=== PATIENT | female | born 1950 | race Caucasian/White ===

== ENCOUNTER 2019-06-02 17:18 | Inpatient (IN) | payer OTHER ==
[~2019-06-02] VITALS: Ht 170.2 cm; Wt 86.2 kg
--- NOTE | 2019-06-02 06:50 | NUR ---
RECEIVED CRITICAL LABS THAT PT POTASSIUM IS 5.9. WILL ENDORSE TO DAYSHIFT NURSE TO FOLLOW UP BECAUSE RESIDENT MD'S ARE DOING THIER ROUNDS.
--- NOTE | 2019-06-02 17:18 | NUR ---
Patient BIBA BLS, transferred to bed 5. RN evaluating patient at bedside.
[2019-06-02 17:24] VITALS: BP 104/35
[2019-06-02] MEDS ORDERED: ONDANSETRON 4 MG/2 ML VIAL IVP ONE (17:40)
[2019-06-02] MEDS ORDERED: NACL 0.9% 1,000 ML IV ONE (17:40)
--- NOTE | 2019-06-02 18:15 | NUR ---
LAB AT BEDSIDE. UNABLE TO GET FULL SET OF LABS.
--- NOTE | 2019-06-02 18:30 | NUR ---
LAB AT BEDSIDE
[2019-06-02 18:44] LABS: HEMATOCRIT 37.2 % (36-48); HEMOGLOBIN 11.5 g/dL (12.0-16.0); MEAN CORPUSCULAR HEMOGLOBIN 31 pg (27-31); MEAN CORPUSCULAR HGB CONC 31 g/dL (33-37); MEAN CORPUSCULAR VOLUME 100.6 fL (80-94); PLATELET COUNT (AUTO) 357 K/uL (140-450); WHITE BLOOD COUNT (AUTO) 20.2 K/uL (4.8-10.8)
--- NOTE | 2019-06-02 18:49 | NUR ---
PT HAD DARK GREEN STOOL IN DIAPER, CLEANED PT WITH DHEERAJ LUU, ASSISTED PT TO BED LEVY TO PROVIDE URINE SAMPLE.
[2019-06-02 19:00] LABS: ALBUMIN 2.8 g/dL (3.4-5.0); ASPARTATE AMINOTRANSFERASE 20 U/L (15-37); CARBON DIOXIDE 23.8 mmol/L (21-32); CHLORIDE 111 mmol/L (98-107); CREATININE 2.2 mg/dL (0.6-1.3); GLUCOSE 195 mg/dL (74-106); LIPASE 179 U/L (73-393); POTASSIUM 5.8 mmol/L (3.5-5.1); SODIUM SERUM 146 mmol/L (136-145); TOTAL BILIRUBIN 0.3 mg/dL (0.0-1.0); UREA NITROGEN, BLOOD 50 mg/dL (7-18)
--- NOTE | 2019-06-02 19:00 | NUR ---
ATTEMPTED STRAIGHT CATH WITH DHEERAJ LUU AND RADHA EMT ASSISTING, UNABLE TO GET URINE RETURN. PER ER OKAY TO GIVE PT WATER.
--- NOTE | 2019-06-02 19:05 | NUR ---
TRANSFER OF CARE AND REPORT GIVEN BY BELL RIGGINS
--- NOTE | 2019-06-02 19:09 | NUR ---
CHIKIS ONEAL POSTPARTUM RN
[2019-06-02 19:11] LABS: LYMPHOCYTES % (MANUAL) 2 % (20-46); MONOCYTES % (MANUAL) 7 % (5-12)
--- NOTE | 2019-06-02 19:23 | NUR ---
PT LEAVING VIA GURNEY TO CT WITH EMT
[2019-06-02] MEDS ORDERED: PIPERACILLIN/TAZOBACTAM 3.375 GM in DEXTROSE 5% 50 ML IV ONE (19:35)
[2019-06-02] MEDS ORDERED: metroNIDAZOLE 500 MG/NS PREMIX 100 ML IV ONE (19:35)
[2019-06-02] MEDS ORDERED: PIPERACILLIN/TAZOBACTAM 3.375 GM VIAL IV ONE (19:40)
--- NOTE | 2019-06-02 20:36 | NUR ---
DORIAN CONTACT INFORMATION
[2019-06-02] MEDS ORDERED: LOSA25TA43 PO (20:44)
[2019-06-02] MEDS ORDERED: MIRA25TE PO (20:45)
[2019-06-02] MEDS ORDERED: SIMV40TA1 PO (20:49)
[2019-06-02] MEDS ORDERED: ASPI-1884 PO (20:49)
[2019-06-02] MEDS ORDERED: OMEP20TC12 PO (20:50)
[2019-06-02] MEDS ORDERED: MIRT15TA PO (20:51)
[2019-06-02] MEDS ORDERED: GLIP5TER PO (20:53)
--- NOTE | 2019-06-02 20:53 | NUR ---
DR. HUFF AT BEDSIDE USING ULTRASOUND FOR IV ACCESS. 20 GAUGE TO RIGHT AC. VERBAL ORDER FOR NS 1000 BOLUS.
[2019-06-02] MEDS ORDERED: GABA100C PO (20:54)
[2019-06-02] MEDS ORDERED: ASCO500T45 PO (20:55)
[2019-06-02] MEDS ORDERED: [UNRECOGNIZED DRUG - CODE] PO (20:55)
[2019-06-02] MEDS ORDERED: FERR325E14 PO (20:56)
[2019-06-02] MEDS ORDERED: LACT1CAP59 PO (20:56)
[2019-06-02] MEDS: NACL 0.9% 1,000 ML IV SCH (21:02)
[2019-06-02] MEDS ORDERED: HYDROcodone/APAP 7.5/325 MG 1 TAB PO PRN (21:05)
[2019-06-02] MEDS ORDERED: ONDANSETRON 4 MG/2 ML VIAL IM/IVP PRN (21:05)
[2019-06-02] MEDS ORDERED: ACETAMINOPHEN 325 MG TAB PO PRN (21:05)
--- NOTE | 2019-06-02 21:09 | NUR ---
XRAY AT BEDSIDE
--- NOTE | 2019-06-02 21:12 | NUR ---
CALLED FOR ROOM. NURSE UNAVAILABLE TO TAKE REPORT AND RECIEVE ROOM.
--- NOTE | 2019-06-02 21:22 | NUR ---
CALLED FLOOR. NO ANSWER.
--- NOTE | 2019-06-02 21:38 | NUR ---
PT HAD LOOSE DARK GREEN STOOL. PT AREA CLEAN AND DRY. SKIN INTACT.
[2019-06-02 21:40] LABS: PROTHROMBIN TIME 9.6 secs (10.8-13.4)
[2019-06-02] MEDS ORDERED: DEXTROSE 50% 50 ML SYR IVP PRN (21:40)
[2019-06-02 21:47] LABS: CHOL/HDL RATIO 4.4 (1-4.5); FREE T4 (FREE THYROXINE) 1.18 ng/dL (0.76-1.46); MAGNESIUM 3.8 mg/dL (1.8-2.4); PHOSPHORUS 5.8 mg/dL (2.5-4.9); THYROID STIMULATING HORMONE 4.05 uIU/mL (0.34-3.74)
--- NOTE | 2019-06-02 21:55 | NUR ---
Transfer of care and report given to BELL Hurd
--- NOTE | 2019-06-02 21:55 | NUR ---
Patient will be admitted to care of Dr. Morrow. Admited to Tele. Will go to room 125a. Belongings list completed. Report to BELL Hurd.
--- NOTE | 2019-06-02 22:00 | NUR ---
RECEIVED PT BY KEYON REPORT GIVEN FROM ENID BAND SALVAGER NURSE AT BEDSIDE FOR CONTINUITY OF CARE. PT IS AOX3, HER SKIN IS INTACT, LUNGS CLEAR AND BOWEL SOUNDS PRESENT. PT IS NPO EXCEPT MEDS PER MD. GORDO PT MAY HAVE SOME ICE CHIPS. V/S FOLLOWS T 97.2 P 86 R 18 B/P 122/97 02 99% ON ROOM AIR. PT ANTOINETTE PAIN AT THIS TIME. SHE HAS 2 IV SITE , 1 IS A 20 G LEFT AC WHICH IS FINISHING UP A BOLUS FROM ER. SHE ALSO HAS A 24 G ON RIGHT FINGER INTACT AND FLUSHED PATENT. BED LOW AND CALL BAUTISTA IN REACH.
--- NOTE | 2019-06-02 22:15 | NUR ---
MD CARO AT BEDSIDE INTERVIEWING PT.
--- NOTE | 2019-06-02 23:00 | NUR ---
PT HAD A BM WHICH WAS DARK, TARRY IN COLOR AND CHUNKY CONSISTENCY. STOOL COLLECTED FOR DIFFERENT TESTS INCLUDING WBC, OCCULT BLOOD AND OCCULT STOOL AND C-DIFF. MD ORDERED A KEENAN CATHETER AND A 16 [place] CITIZEN KEENAN CATHETER INSERTED. URINE CAME OUT CLOUDY YELLOW WITH SEDIMENT. URINE SAMPLE COLLECTED AND SENT TO LAB.
[2019-06-03] VITALS (7 sets, daily range): BP systolic 86–122; BP diastolic 36–97
--- NOTE | 2019-06-03 | NUR ---
PT IN BED NO S/S OF PAIN OR DISTRESS NOTED. V/S FOLLOWS T 98.3 P 89 R 18 B/P 113/47 02 96% ON ROOM AIR. ALL FALLS PRECAUTIONS IN PLACE.
--- NOTE | 2019-06-03 01:00 | NUR ---
LAB CALLED AND COULD NOT USE COLLECT STOOL FOR C-DIFF.
[2019-06-03 01:55] LABS: APPEARANCE,URINE CLOUDY (CLEAR); BILIRUBIN,URINE NEGATIVE (NEGATIVE); BLOOD, URINE 1+ (NEGATIVE); COLOR,URINE YELLOW (YELLOW); UGLUCOSE NEGATIVE (NEGATIVE)
[2019-06-03 01:56] LABS: LEUKOCYTE ESTERASE ,URINE 3+ (NEGATIVE); NITRITE, URINE POSITIVE (NEGATIVE)
[2019-06-03 01:57] LABS: RBC,URINE 11-20 (MOD) /HPF (0-5); WBC,URINE TOO MANY TO COUNT /HPF (0-5)
--- NOTE | 2019-06-03 04:00 | NUR ---
PT IN BED SLEEPING NO S/S OF DISTRESS NOTED, KEENAN DRAINED 500MLS OF DIMITRY REDDISH URINE. IV SITE 24G INTACT AND RUNNING NS AT 100MLS/HR. V/S FOLLOWS T 97.0 P 92 R 18 B/P 108/44 02 93% ON ROOM AIR.
[2019-06-03] MEDS: metroNIDAZOLE 500 MG/NS PREMIX 100 ML IV SCH ×3 (04:42→21:00)
--- NOTE | 2019-06-03 04:47 | NUR ---
AMARJIT MEJIA AND IS RUNNING ORDERED AT 100MLS/HR.
[2019-06-03] MEDS ORDERED: LEVOFLOXACIN 500 MG/D5W PREMIX 100 ML IV SCH (06:00)
--- NOTE | 2019-06-03 06:00 | NUR ---
FINGERSTICK IS 151 NO COVERAGE GIVEN BECAUSE PT IS NPO. LEVAQUIN HUNG ORDERED.
[2019-06-03 06:31] LABS: HEMOGLOBIN 10.9 g/dL (12.0-16.0)
[2019-06-03] MEDS: NACL 0.9% 1,000 ML IV SCH ×3 (06:37→22:49)
[2019-06-03 06:38] LABS: ANION GAP 18.6 (8-16); CARBON DIOXIDE 21.3 mmol/L (21-32); CHLORIDE 112 mmol/L (98-107); GLUCOSE 172 mg/dL (74-106); SODIUM SERUM 146 mmol/L (136-145); UREA NITROGEN, BLOOD 51 mg/dL (7-18)
[2019-06-03] MEDS: BLOOD GLUCOSE MONITORING 1 DEV DEV FS SCH ×4 (06:38→21:22)
[2019-06-03 06:50] LABS: POTASSIUM 5.9 mmol/L (3.5-5.1)
[2019-06-03 06:56] LABS: HEMATOCRIT 34.8 % (36-48); MEAN CORPUSCULAR HEMOGLOBIN 31 pg (27-31); MEAN CORPUSCULAR HGB CONC 31 g/dL (33-37); MEAN CORPUSCULAR VOLUME 98.6 fL (80-94); PLATELET COUNT (AUTO) 312 K/uL (140-450); RED BLOOD CELL COUNT(AUTO) 3.53 MIL/uL (4.20-5.40); RED CELL DISTRIBUTION WIDTH 13.9 % (11.6-13.7); WHITE BLOOD COUNT (AUTO) 16.6 K/uL (4.8-10.8)
--- NOTE | 2019-06-03 07:20 | NUR ---
RECEIVED BEDSIDE REPORT FROM PODIATRIC MEDICINE PROFESSOR NURSE, LINDSAY, AT BEDSIDE. PATIENT IS AROUSED BY NAME, OX2-3. RESPIRATION EVEN UNLABORED ON ROOM AIR. SKIN IS INTACT, WARM AND DRY. IV TO LEFT HAND 24G, PATENT AND INTACT. RUNNING NS AT 100ML/HR. KEENAN CATH DRAINING CLOUDY YELLOW URINE. PLAN OF CARE WAS DISCUSSED. ALL SAFETY MEASURES IN PLACE. BED IS AT LOWEST POSITION. CALL LIGHT WITHIN REACH. ON TELE MONITOR. WILL CONTINUE TO MONITOR.
[2019-06-03] MEDS ORDERED: DEXTROSE 50% 50 ML SYR IVP SCH (07:45)
[2019-06-03] MEDS ORDERED: INSULIN REGULAR, HUMAN 100 UNIT/ML VIAL IVP SCH (07:45)
--- NOTE | 2019-06-03 08:30 | NUR ---
PATIENT HAS BEEN SCREENED AND CATEGORIZED HIGH NUTRITION RISK. PATIENT WILL BE SEEN WITHIN 1-2 DAYS OF ADMISSION. 06/03/19-06/04/[address]
[2019-06-03] MEDS ORDERED: INSULIN REGULAR, HUMAN 100 UNIT/ML VIAL SUBQ ONE (08:45)
[2019-06-03] MEDS ORDERED: DEXTROSE 50% 50 ML SYR IVP ONE (08:45)
[2019-06-03] MEDS: PANTOPRAZOLE 40 MG TABEC PO SCH (08:54)
[2019-06-03] MEDS: ASCORBIC ACID 500 MG TAB PO SCH (08:54)
[2019-06-03] MEDS: LACTOBACILLUS RHAMNOSUS GG 1 EACH CAP PO SCH (08:55)
[2019-06-03 08:57] LABS: LYMPHOCYTES % (MANUAL) 18 % (20-46)
[2019-06-03 08:58] LABS: MONOCYTES % (MANUAL) 5 % (5-12)
[2019-06-03] MEDS ORDERED: LOSARTAN 25 MG TAB PO SCH (09:00)
[2019-06-03] MEDS ORDERED: SODIUM POLYSTYRENE 15 GM/60 ML UDBTL PO SCH ×2 (09:30→12:45)
--- NOTE | 2019-06-03 10:30 | NUR ---
C DIFF SPECIMEN SENT TO LAB.
--- NOTE | 2019-06-03 12:00 | NUR ---
DR BAKER HAS SEEN PT, MADE HIM AWARE PT HAS DIARRHEA AND BLACK STOOL. C DIFF HAS BEEN SENT ALREADY.
--- NOTE | 2019-06-03 12:30 | NUR ---
MADE RESIDENT DR SOLOMON AWARE OF LOW BP 94/36. DR SOLOMON CHECKED ON PT.
[2019-06-03] MEDS ORDERED: NACL 0.9% 500 ML IV ONE (12:50)
--- NOTE | 2019-06-03 13:36 | NUR ---
06/03/19 RD INITIAL ASSESSMENT COMPLETED PLEASE REFER TO NUTRITION ASSESSMENT UNDER CARE ACTIVITY FOR ESTIMATED NUTRITIONAL NEEDS. 1. CONTINUE NPO DIET TOLERATED 2. IF/WHEN MEDICALLY STABLE FOR NUTRITION, ADVANCE DIET TOLERATED TO 60G CCHO DIET 3. RD TO FOLLOW-UP 2-3 DAYS,HIGH RISK TINO SEGOVIA RD
[2019-06-03] MEDS: SENNA 8.6 MG TAB PO SCH ×2 (14:35→16:49)
[2019-06-03] MEDS: METOCLOPRAMIDE 10 MG/2 ML INJ VIAL IVP SCH ×2 (14:40→23:53)
[2019-06-03 15:35] LABS: ANION GAP 17.2 (8-16); CARBON DIOXIDE 22.7 mmol/L (21-32); CHLORIDE 109 mmol/L (98-107); GLUCOSE 110 mg/dL (74-106); POTASSIUM 4.9 mmol/L (3.5-5.1); SODIUM SERUM 144 mmol/L (136-145); UREA NITROGEN, BLOOD 47 mg/dL (7-18)
--- NOTE | 2019-06-03 16:45 | NUR ---
MADE RESIDENT DR SOLOMON AWARE OF LOW BP 86/46 AFTER THE 500ML NS BOLUS. DR SOLOMON CHECKED ON PT. Addendum: 06/03/19 at 1937 by Massimo Olivares RN ALSO ASKED DR SOLOMON IF PT NEEDS TO GO TO ICU, DR SOLOMON SAID LET'S GIVE HER 1L NS BOLUS, PT MIGHT BE DEHYDRATED FROM DIARRHEA.
[2019-06-03] MEDS ORDERED: NACL 0.9% 1,000 ML IV ONE (17:00)
--- NOTE | 2019-06-03 18:30 | NUR ---
PT IS AWAKE, ALERT, FLAT BREAKDOWN PROCESSOR IS HELPING PT WITH DINNER.
--- NOTE | 2019-06-03 19:29 | NUR ---
RECEIVED FROM AM RN IN BED SLEEPING. ABLE TO WAKE UP WHEN TOUCHED. CALL LIGHT WITH IN REACH . CARE PLANS FOR THE NIGHT DISCUSSED WITH HER. CALL LIGHT WITH IN REACH. KEENAN CATHETER IN PLACE AND DRAINING WITH YELLOW URINE. PT. BASELINE IS BEDBOUND. NEEDS WILL BE ANTICIPATED AND WILL BE MET. TOTAL CARE AND ISOLATION PRECAUTIONS RT R/O C-DIFF. IVF SITE INTACT AND NO INFILTRATION.
[2019-06-03] MEDS: MIRTAZAPINE 15 MG TAB PO SCH (20:59)
[2019-06-03] MEDS: GABAPENTIN 100 MG CAP PO SCH (20:59)
[2019-06-03] MEDS: POLYETHYLENE GLYCOL 17 GM/PKT PO SCH (21:00)
[2019-06-03] MEDS ORDERED: MAGNESIUM CITRATE 300 ML BTL PO ONE (21:00)
[2019-06-03] MEDS: SIMVASTATIN 40 MG TAB PO SCH (21:00)
[2019-06-03] MEDS: INSULIN LISPRO SLIDING SCALE 100 UNITS/ML VIAL SUBQ PRN (21:23)
--- NOTE | 2019-06-03 22:14 | NUR ---
BLOOD SUGAR CHECK PER FINGERSTICK 153. COVERED WITH INSULIN PER PROTOCOL. ABLE TO TAKE ALL MEDICATIONS PER P.O. ORDERED. ABLE TO VERBALIZE SIMPLE NEEDS WELL IN [place]. NO COMPLAINTS DONE. CALL LIGHT WITH IN REACH.
[2019-06-04 00:16] VITALS: BP 91/44
--- NOTE | 2019-06-04 00:18 | NUR ---
WOKE PT. UP AT THIS TIME TO RE-CHECK BP. ASKED HER TO INHALE DEEP AND WAKE UP FOR ME FOR NOW. INFORMED HER THAT I WILL RE-CHECK BP. NOTED PT. WITH HIGHER BP IF TOTALLY AWAKE. CALL LIGHT WITH IN REACH .
[2019-06-04] MEDS: NACL 0.9% 1,000 ML IV SCH (01:21)
--- NOTE | 2019-06-04 02:30 | NUR ---
PT. CLEANED UP BY CNAS RT WITH LIQUIDY BM DARK IN COLOR. NO SOLID STOOL SEEN YET. PT. GIVEN LAXATIVES LAST NIGHT/START OF SHIFT ORDERED. ABLE TO DRINK EVERYTHING. KEENAN CATHETER IN PLACE AND DRAINING WITH YELLOW URINE. TELEMETRY MONITORING.
--- NOTE | 2019-06-04 03:30 | NUR ---
VITAL SIGNS TAKEN. PT. WAKES UP WHEN TOUCHED. NEEDS ANTICIPATED AND MET. TOTAL CARE. BEDBOUND . SKIN INTACT.
[2019-06-04 04:18] VITALS: BP 95/40
[2019-06-04] MEDS: metroNIDAZOLE 500 MG/NS PREMIX 100 ML IV SCH ×3 (04:30→22:14)
[2019-06-04] MEDS: BLOOD GLUCOSE MONITORING 1 DEV DEV FS SCH ×4 (05:20→21:00)
[2019-06-04] MEDS: LEVOFLOXACIN 250 MG/D5 PREMIX 50 ML IV SCH (05:20)
--- NOTE | 2019-06-04 05:40 | NUR ---
PT. HAD ANOTHER BM BLACK IN COLOR WITH STICKY CONSISTENCY. MADE RESIDENT MD AWARE. NO SOB. ABLE TO HELP US TURN SELF. NO PAIN COMPLAINTS DONE. ON TELEMETRY MONITORING.
[2019-06-04] MEDS: METOCLOPRAMIDE 10 MG/2 ML INJ VIAL IVP SCH ×3 (06:05→22:14)
[2019-06-04 06:19] LABS: BASOPHILS % (AUTO) 0.1 % (0.0-2.0); EOSINOPHILS % (AUTO) 0.1 % (0.0-4.0); HEMATOCRIT 29.9 % (36-48); HEMOGLOBIN 9.4 g/dL (12.0-16.0); LYMPHOCYTES # (AUTO) 0.6 K/uL (2.5-16.5); LYMPHOCYTES % (AUTO) 4.3 % (20.5-51.1); MEAN CORPUSCULAR HEMOGLOBIN 32 pg (27-31); MEAN CORPUSCULAR HGB CONC 31 g/dL (33-37); MEAN CORPUSCULAR VOLUME 100.7 fL (80-94); MONOCYTES # (AUTO) 1.4 K/uL (0.8-1.0); MONOCYTES % (AUTO) 10.2 % (1.7-9.3); NEUTROPHILS # (AUTO) 11.3 K/uL (1.8-7.7); NEUTROPHILS % (AUTO) 85.3 % (42.2-75.2); PLATELET COUNT (AUTO) 256 K/uL (140-450); RED BLOOD CELL COUNT(AUTO) 2.97 MIL/uL (4.20-5.40); WHITE BLOOD COUNT (AUTO) 13.3 K/uL (4.8-10.8)
[2019-06-04 06:56] LABS: CARBON DIOXIDE 20.3 mmol/L (21-32); CHLORIDE 119 mmol/L (98-107); CREATININE 1.8 mg/dL (0.6-1.3); GLUCOSE 135 mg/dL (74-106); POTASSIUM 3.3 mmol/L (3.5-5.1); SODIUM SERUM 150 mmol/L (136-145); UREA NITROGEN, BLOOD 39 mg/dL (7-18)
--- NOTE | 2019-06-04 07:19 | NUR ---
ENDORSED TO THE NEXT RN FOR CONTINUITY OF CARE. SLEEPING BUT WAKES UP EASILY WHEN TOUCHED. TELEMETRY MONITORING. CALL LIGHT WITH IN REACH.
--- NOTE | 2019-06-04 07:20 | NUR ---
RECEIVED REPORT FROM DAY SHIFT NURSE ANASTASIA FOR CONTINUITY OF CARE. PT IN STABLE CONDITION. RESPIRATIONS EVEN AND UNLABORED, ROOM AIR. IV INTACT AND PATENT. ORIENTED PT TO ROOM. SAFETY MEASURES IN PLACE. BED IN LOW POSITION. BED ALARM ON. CALL LIGHT AT BEDSIDE. WILL CONTINUE TO MONITOR.
[2019-06-04 07:33] LABS: MAGNESIUM 2.6 mg/dL (1.8-2.4)
[2019-06-04 08:00] VITALS: BP 97/41
[2019-06-04] MEDS: POLYETHYLENE GLYCOL 17 GM/PKT PO SCH ×2 (08:15→22:13)
[2019-06-04] MEDS: LACTOBACILLUS RHAMNOSUS GG 1 EACH CAP PO SCH (08:15)
[2019-06-04] MEDS: PANTOPRAZOLE 40 MG TABEC PO SCH (08:15)
[2019-06-04] MEDS: ASCORBIC ACID 500 MG TAB PO SCH (08:15)
[2019-06-04] MEDS: NACL 0.45% 1,000 ML IV SCH ×2 (08:22→14:24)
[2019-06-04] MEDS: MORPHINE SULFATE 2 MG/ML SYR IVP PRN (08:22)
--- NOTE | 2019-06-04 08:38 | NUR ---
GAVE ORDERED DUE MEDICATIONS AT THIS TIME. PT TOLERATED WELL. BED IN LOW POSITION. BED ALARM ON. CALL LIGHT AT BEDSIDE. WILL CONTINUE TO MONITOR.
[2019-06-04] MEDS ORDERED: POTASSIUM CHLORIDE 10 MEQ TABER PO SCH (08:46)
[2019-06-04] MEDS: SENNA 8.6 MG TAB PO SCH ×3 (10:38→16:53)
--- NOTE | 2019-06-04 11:33 | NUR ---
PT LYING IN BED SLEEP AT THIS TIME. RESPIRATIONS EVEN AND UNLABORED. BED IN LOW POSITION. BED ALARM ON. CALL LIGHT AT BEDSIDE. WILL CONTINUE TO MONITOR.
[2019-06-04 12:00] VITALS: BP 95/45
--- NOTE | 2019-06-04 13:20 | NUR ---
REPOSITIONED AND CLEANED AFTER MODERATE BOWEL MOVEMENT. PT TOLERATED WELL. BED IN LOW POSITION. BED ALARM ON. CALL LIGHT AT BEDSIDE. WILL CONTINUE TO MONITOR. Addendum: 06/04/19 at 1714 by Shirley Carey RN DIARRHEA, DARK GREEN BOWEL MOVEMENT
[2019-06-04] MEDS ORDERED: POTASSIUM CHLORIDE 20% 40 MEQ/15 ML UDC GT SCH (14:58)
--- NOTE | 2019-06-04 15:30 | NUR ---
GAVE ORDERED DUE MEDICATIONS AT THIS TIME. PT IN STABLE CONDITION. WILL CONTINUE TO MONITOR. BED IN LOW POSITION. BED ALARM ON. CALL LIGHT AT BEDSIDE.
[2019-06-04 16:00] VITALS: BP 94/46
[2019-06-04] MEDS: INSULIN LISPRO SLIDING SCALE 100 UNITS/ML VIAL SUBQ PRN (17:09)
--- NOTE | 2019-06-04 17:13 | NUR ---
REPOSITIONED AND CLEANED AFTER SMALL BOWEL MOVEMENT (DIARRHEA, DARK GREEN). PT TOLERATED WELL. BED IN LOW POSITION. BED ALARM ON. CALL LIGHT AT BEDSIDE. WILL CONTINUE TO MONITOR.
--- NOTE | 2019-06-04 19:15 | NUR ---
RECEIVED BEDSIDE REPORT FROM AM SHIFT BELL OCHOA, FOR PT'S CONTINUITY OF CARE. PT IS LYING DOWN, AWAKE, WITH NO COMPLAINS OF PAIN, IS ON ROOM AIR, HEAD WELL PULLER, HAS LEFT HAND 20G, AND LEFT FA24G WITH 1/2 NS AT 50ML/HR. FALL PRECAUTION IN PLACE. BED IS ON LOW POSITION, SIDE RAILS ARE UP, AND CALL LIGHT IS WITHIN REACH. WILL MONITOR PT THROUGHOUT SHIFT.
--- NOTE | 2019-06-04 19:15 | NUR ---
GAVE REPORT TO TURF GROWER NURSE FOR CONTINUITY OF CARE. PT IN STABLE CONDITION.
[2019-06-04 20:00] VITALS: BP 102/45
--- NOTE | 2019-06-04 21:00 | NUR ---
BLOOD GLUCOSE CHECKED AND CHARTED. NO INSULIN COVERAGE NEEDED AT THIS TIME.
[2019-06-04] MEDS: SIMVASTATIN 40 MG TAB PO SCH (22:12)
[2019-06-04] MEDS: GABAPENTIN 100 MG CAP PO SCH (22:12)
[2019-06-04] MEDS: MIRTAZAPINE 15 MG TAB PO SCH (22:13)
--- NOTE | 2019-06-04 22:14 | NUR ---
ADMINISTERED SCHEDULED PO AND IV ABX MEDICATIONS ORDERED. PT TOLERATED THEM WELL. PT DENIES ANY PAIN. PT WAS LOOKING FOR HER "SEATBELT". REMINDED PT THAT SHE'S AT THE HOSPITAL, WENT BACK TO SLEEP AFTER. WILL CONTINUE TO MONITOR PT.
[2019-06-05] VITALS: BP 104/42
--- NOTE | 2019-06-05 | NUR ---
VS CHECKED AND CHARTED. PT DENIES ANY PAIN AT THIS TIME. WILL CONTINUE TO MONITOR PT.
--- NOTE | 2019-06-05 02:20 | NUR ---
PT LYING DOWN APPEARS TO BE ASLEEP. WILL CONTINUE TO MONITOR PT.
[2019-06-05 04:00] VITALS: BP 102/48
[2019-06-05] MEDS: metroNIDAZOLE 500 MG/NS PREMIX 100 ML IV SCH ×3 (04:23→21:28)
[2019-06-05] MEDS: MORPHINE SULFATE 2 MG/ML SYR IVP PRN (04:31)
--- NOTE | 2019-06-05 04:31 | NUR ---
PT STATES SHE HAS SEVERE BACK PAIN "05/21". ADMINISTERED PRN IV PUSH PAIN MEDICATION ORDERED. VS CHECKED AND CHARTED. PT HAD 1 DARK GREEN, SOFT/LIQUID STOOL. ASSISTED REPAIR TECHNICIAN IN CHANGING AND REPOSITIONING PT. PT TOLERATED ACTIVITY FAIRLY, STATES LEFT LEG HURTS WHEN MOVING. WILL CONTINUE TO MONITOR PT.
--- NOTE | 2019-06-05 05:55 | NUR ---
BLOOD GLUCOSE CHECKED AND CHARTED. NO INSULIN COVERAGE NEEDED. ADMINISTERED SCHEDULED IV ABX ORDERED. PT STATED PAIN MEDICATION HELPED RELIEVE PAIN. WILL CONTINUE TO MONITOR PT.
[2019-06-05] MEDS: LEVOFLOXACIN 250 MG/D5 PREMIX 50 ML IV SCH (05:57)
--- NOTE | 2019-06-05 06:20 | NUR ---
ADMINISTERED SCHEDULED IV PUSH MEDICATION ORDERED. PT ASLEEP, WOKE UP AND DENIES ANY PAIN AT THIS TIME. WILL ENDORSE TO AM SHIFT RN FOR PT'S CONTINUITY OF CARE.
[2019-06-05] MEDS: METOCLOPRAMIDE 10 MG/2 ML INJ VIAL IVP SCH ×3 (06:21→22:17)
[2019-06-05] MEDS: BLOOD GLUCOSE MONITORING 1 DEV DEV FS SCH ×4 (06:21→21:50)
[2019-06-05 06:33] LABS: HEMATOCRIT 29.8 % (36-48); HEMOGLOBIN 9.6 g/dL (12.0-16.0); MEAN CORPUSCULAR HEMOGLOBIN 32 pg (27-31); MEAN CORPUSCULAR HGB CONC 32 g/dL (33-37); MEAN CORPUSCULAR VOLUME 98.9 fL (80-94); PLATELET COUNT (AUTO) 231 K/uL (140-450); RED BLOOD CELL COUNT(AUTO) 3.02 MIL/uL (4.20-5.40)
[2019-06-05 06:56] LABS: ANION GAP 13.1 (8-16); CARBON DIOXIDE 22.9 mmol/L (21-32); CHLORIDE 114 mmol/L (98-107); CREATININE 1.7 mg/dL (0.6-1.3); GLUCOSE 154 mg/dL (74-106); SODIUM SERUM 146 mmol/L (136-145); UREA NITROGEN, BLOOD 35 mg/dL (7-18)
[2019-06-05 07:03] LABS: MAGNESIUM 2.5 mg/dL (1.8-2.4); PHOSPHORUS 1.7 mg/dL (2.5-4.9)
--- NOTE | 2019-06-05 07:20 | NUR ---
RECEIVED BEDSIDE REPORT FROM THE FIRE PREVENTION CAPTAIN NURSE DAVID. PT IS ASLEEP, NO S/S OF ACUTE DISTRESS NOTED, NO SOB. PT ON ROOM AIR, SKIN INTACT. KEENAN CATHETER INSERTED DRAINING CLEAR DIMITRY URINE. IV SITE NOTED IN THE L HAND 20, AND THE L FA 22 G, INFUSING 1/2 NS 50 ML/HR. PT CURRENTLY NPO FOR POSSIBLE COLONOSCOPY. FALL PRECAUTIONS IN PLACE, CALL LIGHT IS WITHIN REACH.
[2019-06-05 08:00] VITALS: BP 107/46
[2019-06-05] MEDS: POLYETHYLENE GLYCOL 17 GM/PKT PO SCH ×3 (08:37→21:28)
[2019-06-05] MEDS: SODIUM PHOS / POTASSIUM PHOS 1 PKT PDR PO SCH ×2 (08:37→21:28)
[2019-06-05] MEDS: PANTOPRAZOLE 40 MG TABEC PO SCH (08:38)
[2019-06-05] MEDS: ASCORBIC ACID 500 MG TAB PO SCH (08:38)
[2019-06-05] MEDS: LACTOBACILLUS RHAMNOSUS GG 1 EACH CAP PO SCH (08:38)
[2019-06-05] MEDS: SENNA 8.6 MG TAB PO SCH ×3 (08:38→16:29)
[2019-06-05] MEDS: DEXT 5% / NACL 0.45% 500 ML IV SCH ×2 (08:38→18:17)
--- NOTE | 2019-06-05 08:47 | NUR ---
AM MEDS ADMINISTERED, PT TOLERATED WELL.
[2019-06-05 11:19] LABS: LYMPHOCYTES % (MANUAL) 8 % (20-46); MONOCYTES % (MANUAL) 6 % (5-12)
[2019-06-05 12:00] VITALS: BP 97/41
--- NOTE | 2019-06-05 12:45 | NUR ---
PT HAD A LOOSE DARK BROWN BM, PT WAS CLEANED, CHANGED AND REPOSITIONED.
--- NOTE | 2019-06-05 13:58 | NUR ---
PT RESTING COMFORTABLY, NO S/S OF ACUTE DISTRESS.
--- NOTE | 2019-06-05 14:34 | NUR ---
PT SEEN BY DR BAKER. PER DR BAKER, PT WILL BE PLACED ON BOWEL PREP, A CLEAR LIQUID DIET FOR TONIGHT, AND BE NPO TOMORROW FOR COLOSTOMY. Addendum: 06/05/19 at 1519 by Rosa Bello RN FOR *COLONOSCOPY*
[2019-06-05] MEDS ORDERED: MAGNESIUM CITRATE 300 ML BTL PO SCH (15:00)
--- NOTE | 2019-06-05 15:05 | NUR ---
06/05/19 RD FOLLOW UP COMPLETED PLEASE REFER TO NUTRITION ASSESSMENT UNDER CARE ACTIVITY FOR ESTIMATED NUTRITIONAL NEEDS. 1. CONTINUE NPO DIET TOLERATED 2. IF/WHEN MEDICALLY STABLE FOR NUTRITION, ADVANCE DIET TOLERATED TO 60G CCHO DIET 3[address] RD TO FOLLOW-UP 2-3 DAYS,HIGH RISK TINO SEGOVIA RD
[2019-06-05 16:00] VITALS: BP 105/50
[2019-06-05] MEDS: LACTULOSE 20 GM/30 ML UDC PO SCH (16:28)
--- NOTE | 2019-06-05 19:20 | NUR ---
PT ENDORSED TO POLICE PATROL LIEUTENANT NURSE IN STABLE CONDITION.
--- NOTE | 2019-06-05 19:25 | NUR ---
RECEIVED BEDSIDE REPORT FROM AM SHIFT RN FOR PT'S CONTINUITY OF CARE. PT IS AAOX3-4, IS WATCHING TV, IS ON ROOM AIR, ON BANDER AND CELLOPHANER MACHINE, HAS LEFT FA 22G, AND LEFT HAND 20G. PT DENIES PAIN AT THIS TIME. PT MADE AWARE OF THE RELIEF MANAGER ROUTINE. PT VERBALIZED UNDERSTANDING. WILL MONITOR PT THROUGHOUT SHIFT
[2019-06-05 20:00] VITALS: BP 108/51
[2019-06-05] MEDS: MIRTAZAPINE 15 MG TAB PO SCH (21:28)
[2019-06-05] MEDS: GABAPENTIN 100 MG CAP PO SCH (21:28)
[2019-06-05] MEDS: SIMVASTATIN 40 MG TAB PO SCH (21:28)
--- NOTE | 2019-06-05 21:28 | NUR ---
ADMINISTERED SCHEDULED PO AND IV ABX MEDICATIONS ORDERED. STARTED THE 1ST DOSE OF SUPREP BOWEL PREP. PT TOLERATING THE DRINK WELL. WILL CONTINUE TO MONITOR THE PT
[2019-06-05] MEDS: SUPREP BOWEL PREP KIT 354 ML SOLN.RECON PO SCH (21:32)
[2019-06-05] MEDS: INSULIN LISPRO SLIDING SCALE 100 UNITS/ML VIAL SUBQ PRN (21:44)
[2019-06-06] VITALS: BP 97/43
--- NOTE | 2019-06-06 | NUR ---
VS CHECKED AND CHARTED. PT ASLEEP WITH NO SIGNS OF DISTRESS. PT'S BP ON HIGH 90'S. MD NOTIFIED. CONTINUE TO MONITOR PT, PER MD.
--- NOTE | 2019-06-06 02:30 | NUR ---
MADE ROUNDS. PT LYING DOWN ASLEEP WITH NO SIGNS OF DISTRESS WILL CONTINUE TO MONITOR PT.
[2019-06-06 04:00] VITALS: BP 115/48
[2019-06-06] MEDS: metroNIDAZOLE 500 MG/NS PREMIX 100 ML IV SCH ×2 (04:08→13:10)
--- NOTE | 2019-06-06 04:08 | NUR ---
ADMINISTERED SCHEDULED IV ABX ORDERED. VS CHECKED AND CHARTED. NOTIFIED MD RE: VITAL SIGNS, NNO, CONT. TO MONITOR PT PER MD. PT DENIES ANY PAIN OR DISCOMFORT OR ABNORMALITIES. WILL CONTINUE TO MONITOR PT.
[2019-06-06] MEDS: DEXT 5% / NACL 0.45% 500 ML IV SCH (04:15)
[2019-06-06] MEDS: LEVOFLOXACIN 250 MG/D5 PREMIX 50 ML IV SCH (05:28)
--- NOTE | 2019-06-06 05:28 | NUR ---
ADMINISTERED SCHEDULED ABX ORDERED. SECOND BOWEL PREP SOLUTION STARTED. PT TOLERATING IT WELL. WILL CONTINUE TO MONITOR PT.
[2019-06-06 06:34] LABS: BASOPHILS % (AUTO) 0.1 % (0.0-2.0); EOSINOPHILS # (AUTO) 0.4 K/uL (0-0.4); EOSINOPHILS % (AUTO) 3.8 % (0.0-4.0); HEMATOCRIT 29.8 % (36-48); HEMOGLOBIN 9.8 g/dL (12.0-16.0); LYMPHOCYTES # (AUTO) 1.4 K/uL (2.5-16.5); LYMPHOCYTES % (AUTO) 12.9 % (20.5-51.1); MEAN CORPUSCULAR HEMOGLOBIN 32 pg (27-31); MEAN CORPUSCULAR HGB CONC 33 g/dL (33-37); MEAN CORPUSCULAR VOLUME 97.7 fL (80-94); MONOCYTES % (AUTO) 9.2 % (1.7-9.3); PLATELET COUNT (AUTO) 284 K/uL (140-450); RED BLOOD CELL COUNT(AUTO) 3.05 MIL/uL (4.20-5.40); RED CELL DISTRIBUTION WIDTH 13.7 % (11.6-13.7); WHITE BLOOD COUNT (AUTO) 10.9 K/uL (4.8-10.8)
[2019-06-06] MEDS: METOCLOPRAMIDE 10 MG/2 ML INJ VIAL IVP SCH (06:41)
[2019-06-06] MEDS: BLOOD GLUCOSE MONITORING 1 DEV DEV FS SCH ×3 (06:47→16:43)
--- NOTE | 2019-06-06 06:47 | NUR ---
ADMINISTERED SCHEDULED IV PUSH MEDICATION ORDERED. BLOOD GLUCOSE CHECKED AND CHARTED. NO COVERAGE NEEDED. WILL ENDORSE TO AM SHIFT RN FOR CONTINUITY OF CARE.
--- NOTE | 2019-06-06 07:20 | NUR ---
RECEIVED BEDSIDE REPORT FROM EVALUATION ANALYST NURSE. PT IS ASLEEP, NO S/S OF ACUTE DISTRESS. PT ON ROOM AIR, SKIN INTACT. IV SITE IS IN THE L FA 22 G INFUSING D5 1/2 NS 50 ML/HR, AND A SECOND IV SITE IS IN THE L HAND [address] G[address] F[address] PRECAUTIONS IN PLACE. CALL LIGHT IS WITHIN REACH. PT HAS BEEN ON BOWEL PREP SINCE LAST NIGHT, PER EVALUATION ANALYST NURSE PT HAS HAD SEVERAL LIQUID STOOLS BUT THEY ARE STILL DARK GREEN IN COLOR. WILL CONTINUE TO MONITOR.
[2019-06-06 08:00] VITALS: BP 93/54
[2019-06-06 08:09] LABS: MAGNESIUM 3.4 mg/dL (1.8-2.4); PHOSPHORUS 1.6 mg/dL (2.5-4.9)
--- NOTE | 2019-06-06 08:35 | NUR ---
GOT A CALL FROM DR BAKER, DR BAKER AWARE THAT PT HAS BEEN HAVING LIQUID BM'S, BUT THAT THEY ARE STILL DARK IN COLOR. DR BAKER WILL BE GOING AHEAD WITH THE COLONOSCOPY TODAY.
[2019-06-06 09:07] LABS: ANION GAP 10.5 (8-16); CARBON DIOXIDE 26.7 mmol/L (21-32); CHLORIDE 111 mmol/L (98-107); GLUCOSE 138 mg/dL (74-106); POTASSIUM 3.2 mmol/L (3.5-5.1); SODIUM SERUM 145 mmol/L (136-145)
[2019-06-06 09:08] LABS: CREATININE 1.7 mg/dL (0.6-1.3); UREA NITROGEN, BLOOD 31 mg/dL (7-18)
[2019-06-06] MEDS: SODIUM PHOS / POTASSIUM PHOS 1 PKT PDR PO SCH (09:22)
[2019-06-06] MEDS: LACTOBACILLUS RHAMNOSUS GG 1 EACH CAP PO SCH (09:22)
[2019-06-06] MEDS: LACTULOSE 20 GM/30 ML UDC PO SCH (09:22)
[2019-06-06] MEDS: ASCORBIC ACID 500 MG TAB PO SCH (09:22)
[2019-06-06] MEDS: PANTOPRAZOLE 40 MG TABEC PO SCH (09:23)
[2019-06-06] MEDS: SUPREP BOWEL PREP KIT 354 ML SOLN.RECON PO SCH (09:23)
[2019-06-06] MEDS: SENNA 8.6 MG TAB PO SCH (09:23)
[2019-06-06] MEDS: POLYETHYLENE GLYCOL 17 GM/PKT PO SCH (09:23)
--- NOTE | 2019-06-06 09:33 | NUR ---
AM MEDS ADMINISTERED, PT TOLERATED WELL
--- NOTE | 2019-06-06 10:10 | NUR ---
PT HAD A LARGE WATERY BLACK BM. PT WAS CLEANED AHD CHANGED. BED SHEETS CHANGED. PREOP CHECKLIST FOR COLONOSCOPY WAS DONE.
--- NOTE | 2019-06-06 10:52 | NUR ---
PT TAKEN FOR COLONOSCOPY AT THIS TIME
[2019-06-06] MEDS ORDERED: MIDAZOLAM 2 MG/2 ML VIAL ONE (10:59)
[2019-06-06] MEDS ORDERED: fentaNYL 0.05 MG/ML VIAL ONE (10:59)
[2019-06-06] MEDS ORDERED: diphenhydrAMINE 50 MG/ML VIAL ONE (10:59)
--- NOTE | 2019-06-06 11:42 | NUR ---
DR TRIMBLE NOTIFIED OF PT'S POTASSIUM LEVEL 3.2
[2019-06-06 12:00] VITALS: BP 117/57
--- NOTE | 2019-06-06 12:25 | NUR ---
PT IS STILL IN COLONOSCOPY.
--- NOTE | 2019-06-06 12:45 | NUR ---
PT IS BACK FROM COLONOSCOPY, PT IS AWAKE AND ALERT, VS ARE STABLE. BP 117/57, HR 93, O2 96% ON RA, TEMP 97.4, RR 18.
[2019-06-06] MEDS ORDERED: MIDAZOLAM 2 MG/2 ML VIAL IVP ONE (12:50)
[2019-06-06] MEDS ORDERED: fentaNYL 0.05 MG/ML VIAL IVP ONE (12:50)
--- NOTE | 2019-06-06 12:52 | NUR ---
PT IS BACK ON REGULAR DIET. I CALLED [facility] TO BRING PT A LATE LUNCH TRAY.
--- NOTE | 2019-06-06 14:10 | NUR ---
PT STATES THAT SHE HAD A BLACK PURSE WITH A TARUN MOUSE ON IT UPON HER ADMISSION, I HAVE BEEN UNABLE TO LOCATE IT. SECURITY DOES NOT HAVE IT IN THEIR CUSTODY, AND ER DOES NOT HAVE IT EITHER. I CALLED PT'S [employer] INSTALLATION SUPERVISOR DORIAN TO SEE IF MAYBE SOMEONE TOOK THE PURSE HOME AFTER DROPPING OFF THE PT, BUT DORIAN SAID THAT PT ALWAYS HAS HER PURSE WITH HER AND DOES NOT LET ANYONE TAKE IT FROM HER. I LOOKED AROUND IN THE PT'S ROOM SEVERAL TIMES, AND COULD NOT FIND IT.
[2019-06-06] MEDS ORDERED: SENN-74 PO (14:45)
[2019-06-06] MEDS ORDERED: LACT10SO11 PO (14:45)
[2019-06-06] MEDS ORDERED: LACT10SO1 PO (14:47)
[2019-06-06] MEDS ORDERED: LACT10CA1 PO (14:56)
[2019-06-06] MEDS ORDERED: LEVO250T71 PO (14:56)
[2019-06-06] MEDS ORDERED: METR-435 PO (14:56)
[2019-06-06] MEDS ORDERED: MAG SULF 2000 MG/WATER PREMIX 100 ML IV ONE (15:10)
[2019-06-06] MEDS ORDERED: SODIUM PHOS / POTASSIUM PHOS 1 PKT PDR PO SCH (15:30)
[2019-06-06] MEDS ORDERED: POTASSIUM CHLORIDE 10 MEQ TABER PO SCH (15:30)
--- NOTE | 2019-06-06 15:46 | NUR ---
TRIED CALLING [facility] TO GET INFORMATION ABOUT PT'S PHARMACY, I CALLED THE NUMBER LISTED ON OURS AND PT'S FACE SHEET , THIS NUMBER GOES TO A [facility]ENT [facility], AND THE STAFF THERE DOES NOT HAVE ANY OF THE PT'S INFORMATION. THEY GAVE ME THE NUMBER TO THE HOUSE WHERE SHE RESIDES - THE STAFF THERE DOES NOT KNOW HOW PT OBTAINS HER MEDICATIONS, AND DIRECTED ME TO THEIR FACILITY NURSE TIFFANIE, WHO TAKES CARE OF THE RESIDENTS' MEDICATIONS. I CALLED TIFFANIE , NO ANSWER, I LEFT A MESSAGE AND ASKED HER TO CALL US BACK. I ALSO TRIED CALLING THE SLOT MANAGER DORIAN AT , TRIED ABOUT 5 TIMES, UNABLE TO REACH HER ON THE PHONE. DR TRIMBLE AND CHARGE NURSE FAUSTO ARE AWARE.
[2019-06-06 16:00] VITALS: BP 139/64
--- NOTE | 2019-06-06 16:49 | NUR ---
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 DORIAN ALSO STATED SHE IS NOT RESPONSIBLE FOR ANY PAYMENT FOR TRANSPORTATION. SHE STATED SHE HAS A STILL WORKER HELPER THAT IS WAITING FOR THE PT AT THE FACILITY AND SHE WANTS [facility] TO PAY FOR TRANSPORT IF THE DOCTORS ARE DISCHARGING PT TODAY. DORIAN ALSO UPDATED PT'S ADDRESS TO [address] [place] [address]. [place] F[facility] COVERING LAYER NOTIFIED, STATED TO SET UP [facility] AND BILLED TO [facility]. SPOKE WITH AMAURY FROM [facility], ETA WILL BE AT 7 PM TONDEVENDRA. DEBORA ASSIGNED MADE AWARE.
--- NOTE | 2019-06-06 17:03 | NUR ---
CALLED PT'S [facility] AND GAVE BRIEF REPORT TO A MAGNETIC PROSPECTOR, REGARDING PT'S NEW HOME MEDS AND PRESCRIPTION FOR A REFERRAL TO UROLOGY FOR BILATERAL HYDRONEPHROSIS, AND A REPEAT BMP IN 1 WEEK FROM [place].
--- NOTE | 2019-06-06 17:49 | NUR ---
PT WAS CHANGED AND DRESSED TO GET READY FOR DISCHARGE.
--- NOTE | 2019-06-06 18:13 | NUR ---
IV SITES AND KEENAN CATHETER DISCONTINUED
--- NOTE | 2019-06-06 18:42 | NUR ---
WE HAVE BEEN STILL UNABLE TO FIND PT'S BACK PURSE WITH TARUN MOUSE ON IT. THE PT AND HER [employer] COORDINATOR SKILL TRAINING PROGRAM ARE AWARE. SECURITY AND CHARGE NURSE ARE ALSO AWARE. PT STATED THAT SHE WILL LOOK FOR IT WHEN SHE GETS HOME, SHE MIGHT HAVE LEFT IT AT HOME. Addendum: 06/06/19 at 1846 by Rosa Bello RN ADMISSION BELONGINGS ASSESSMENT DOES NOT SPECIFY PT HAVING A PURSE OR ANY OTHER VALUABLES. IT WAS ALSO SPECIFIED THAT PT WOULD KEEP ALL BELONGINGS WITH HER IN HER POSSESSION.
--- NOTE | 2019-06-06 19:25 | NUR ---
PT HAS DC'D BACK TO [facility]. IV SITES AND WRIST BANDS WERE REMOVED. KEENAN TAKEN OUT. PT LEFT WITH HER BELONGINGS, EXCEPT THE BLACK TARUN MOUSE BAG SHE CLAIMS TO HAVE, WHICH WE NEVER FOUND. DC DOCUMENTS//INSTRUCTIONS WERE GIVEN WITH THE PT. PT WAS TAKEN BY [facility]SP[facility] IN STABLE CONDITION.
[2019-06-06] MEDS ORDERED: LACTULOSE 20 GM/30 ML UDC PO SCH (21:00)
[2019-06-06] MEDS ORDERED: GABAPENTIN 100 MG CAP PO SCH (21:00)
[2019-06-07] MEDS ORDERED: SENNA 8.6 MG TAB PO SCH (09:00)
== END 2019-06-06 19:25 | disposition home or self-care (01) | DRG 871 ==
LOC: MED 17:18 → MMU 21:02
PROVIDERS: ADMIT General Practice; ATTEND General Practice
PROC: 0DBG8ZZ Excision of Left Large Intestine, Via Natural or Artificial Opening Endoscopic (ICD-10-PCS; principal; 2019-06-06 10:30)
PROC: 0DBN8ZX Excision of Sigmoid Colon, Via Natural or Artificial Opening Endoscopic, Diagnostic (ICD-10-PCS; 2019-06-06 10:30)
DX: A41.9 Sepsis, unspecified organism (principal); N17.0 Acute kidney failure with tubular necrosis; E43 Unspecified severe protein-calorie malnutrition; Q43.8 Other specified congenital malformations of intestine; E87.0 Hyperosmolality and hypernatremia; N13.6 Pyonephrosis; K55.9 Vascular disorder of intestine, unspecified; I10 Essential (primary) hypertension; F32.9 Major depressive disorder, single episode, unspecified; E78.5 Hyperlipidemia, unspecified; E87.5 Hyperkalemia; E86.0 Dehydration; E11.65 Type 2 diabetes mellitus with hyperglycemia; K21.9 Gastro-esophageal reflux disease without esophagitis; E11.40 Type 2 diabetes mellitus with diabetic neuropathy, unspecified; F70 Mild intellectual disabilities; D64.9 Anemia, unspecified; K56.41 Fecal impaction; E83.39 Other disorders of phosphorus metabolism; E87.6 Hypokalemia; E83.41 Hypermagnesemia; Z68.29 Body mass index [BMI] 29.0-29.9, adult; Z88.8 Allergy status to other drugs, medicaments and biological substances
CPT/HCPCS: 36415; 71045; 74018; 76705; 76770; 80048; 80053; 81001; 82272; 82948; 83036; 83605; 83690; 83735; 83880; 84100; 84439; 84443; 85025; 85610; 85730; 87040; 87045; 87070; 87081; 87086; 87186; 88305; 89055; 93005; 96365; 96375; 99285; C1758; J1200; J1815; J1956; J2250; J2270; J2405; J2543; J2765; J3010; J3490; J7030; Q0092

== ENCOUNTER 2019-06-10 11:42 | Inpatient (IN) | payer OTHER ==
[~2019-06-10] VITALS: Ht 170.2 cm; Wt 90.7 kg
[2019-06-10] MEDS: NACL 0.9% 1,000 ML IV SCH (05:00)
[~2019-06-10 11:42] MED LIST: ASCO500T45 PO; ASPI-1884 PO; FERR325E14 PO; GABA100C PO; GLIP5TER PO; LACT10CA1 PO; LACT10SO1 PO; LACT1CAP59 PO; LEVO250T71 PO; LOSA25TA43 PO; METR-435 PO; MIRA25TE PO; MIRT15TA PO; OMEP20TC12 PO; SENN-74 PO; SIMV40TA1 PO; [UNRECOGNIZED DRUG - CODE] PO
--- NOTE | 2019-06-10 11:45 | NUR ---
PATIENT BIBA TO BED 2 AT THIS TIME.
[2019-06-10] MEDS ORDERED: NACL 0.9% 1,000 ML IV ONE (12:05)
[2019-06-10 12:06] VITALS: BP 122/58
--- NOTE | 2019-06-10 12:08 | NUR ---
PT BIBA FROM [facility] FOR C/O WEAKNESS AND DIAHRREA X 3 DAYS. SKIN TUGOR IS LOOSE AND DRY. ABD IS DISTENDED AND SOFT, BS ARE HYPOACTIVE IN ALL QUADS. LUNG SOUNDS CLEAR AND HEART SOUND S1S2 PRESENT. +2 PITTING EDEMA ON BILAT LOWER EXTREM. +1 NON PITTING ON UPPER EXTREM. BED BOUND. CAREGIVER AT BEDSIDE. ALLERIGES: LIDOCAINE PMH: HTN, DM, MILD INTELLECTUAL DISABILITY.
[2019-06-10 13:17] LABS: BASOPHILS % (AUTO) 0.2 % (0.0-2.0); EOSINOPHILS # (AUTO) 0.1 K/uL (0-0.4); EOSINOPHILS % (AUTO) 1.1 % (0.0-4.0); HEMATOCRIT 33.1 % (36-48); HEMOGLOBIN 10.7 g/dL (12.0-16.0); LYMPHOCYTES % (AUTO) 9.1 % (20.5-51.1); MEAN CORPUSCULAR HEMOGLOBIN 32 pg (27-31); MEAN CORPUSCULAR HGB CONC 32 g/dL (33-37); MEAN CORPUSCULAR VOLUME 97.9 fL (80-94); MONOCYTES # (AUTO) 0.8 K/uL (0.8-1.0); MONOCYTES % (AUTO) 7.5 % (1.7-9.3); NEUTROPHILS # (AUTO) 8.8 K/uL (1.8-7.7); NEUTROPHILS % (AUTO) 82.1 % (42.2-75.2); PLATELET COUNT (AUTO) 372 K/uL (140-450); RED BLOOD CELL COUNT(AUTO) 3.38 MIL/uL (4.20-5.40); RED CELL DISTRIBUTION WIDTH 13.8 % (11.6-13.7); WHITE BLOOD COUNT (AUTO) 10.7 K/uL (4.8-10.8)
--- NOTE | 2019-06-10 13:23 | NUR ---
X-Ray at bedside.
--- NOTE | 2019-06-10 13:30 | NUR ---
PT GETTING TAKEN TO CT VIA [facility].
--- NOTE | 2019-06-10 13:48 | NUR ---
PT PLACED ON BEDPAN. URINE COLLECTED AT THIS TIME
[2019-06-10 14:11] LABS: ALBUMIN 1.8 g/dL (3.4-5.0); ASPARTATE AMINOTRANSFERASE 22 U/L (15-37); CARBON DIOXIDE 26.4 mmol/L (21-32); CHLORIDE 109 mmol/L (98-107); CREATININE 1.5 mg/dL (0.6-1.3); GLUCOSE 150 mg/dL (74-106); MAGNESIUM 1.7 mg/dL (1.8-2.4); POTASSIUM 3.4 mmol/L (3.5-5.1); SODIUM SERUM 144 mmol/L (136-145); TOTAL BILIRUBIN 0.2 mg/dL (0.0-1.0); UREA NITROGEN, BLOOD 16 mg/dL (7-18)
[2019-06-10 14:12] LABS: AMYLASE 16 U/L (25-115); LIPASE 306 U/L (73-393)
--- NOTE | 2019-06-10 14:25 | NUR ---
3 NURSES ATTEMPTED TO SATRT AN IV AND WERE UNSUCCESSFUL. MD BULL.
[2019-06-10 15:21] LABS: APPEARANCE,URINE CLOUDY (CLEAR); BILIRUBIN,URINE NEGATIVE (NEGATIVE); BLOOD, URINE 2+ (NEGATIVE); COLOR,URINE YELLOW (YELLOW); LEUKOCYTE ESTERASE ,URINE 3+ (NEGATIVE); NITRITE, URINE POSITIVE (NEGATIVE); UGLUCOSE NEGATIVE (NEGATIVE)
--- NOTE | 2019-06-10 15:30 | NUR ---
AT BEDSIDE DOING IV ULTRASOUND.
[2019-06-10 15:42] LABS: RBC,URINE 50-80 /HPF (0-5); WBC,URINE TOO MANY TO COUNT /HPF (0-5)
[2019-06-10] MEDS ORDERED: metroNIDAZOLE 500 MG/NS PREMIX 100 ML IV ONE (15:45)
[2019-06-10] MEDS ORDERED: cefTRIAXone 1,000 MG VIAL ONE ×2 (15:57→19:20)
[2019-06-10] MEDS ORDERED: DOCUSATE SODIUM 100 MG GELCAP PO PRN (16:10)
[2019-06-10] MEDS ORDERED: ACETAMINOPHEN 325 MG TAB PO PRN (16:10)
[2019-06-10] MEDS ORDERED: ONDANSETRON 4 MG/2 ML VIAL IM/IVP PRN (16:10)
[2019-06-10] MEDS ORDERED: HYDROcodone/APAP 7.5/325 MG 1 TAB PO PRN (16:10)
[2019-06-10 17:09] LABS: PROTHROMBIN TIME 11.1 secs (10.8-13.4)
[2019-06-10 17:14] LABS: BARBITURATE, URINE NEGATIVE ng/ml (NEG <=200)
[2019-06-10 17:15] LABS: BENZODIAZEPINE, URINE POSITIVE ng/mL (NEG <=200); CANNABINOID, URINE NEGATIVE ng/mL (NEG <=50); COCAINE, URINE NEGATIVE ng/mL (NEG <=300); OPIATE, URINE NEGATIVE ng/mL (NEG <=2000); PHENCYCLIDINE SCREEN,URINE NEGATIVE ng/mL (NEG <=25)
[2019-06-10] MEDS ORDERED: MAGNESIUM OXIDE 400 MG TAB PO SCH (17:30)
[2019-06-10] MEDS ORDERED: POTASSIUM CHLORIDE 10 MEQ TABER PO SCH (17:30)
--- NOTE | 2019-06-10 17:32 | NUR ---
KENN TA TO GET CT SCAN.
[2019-06-10 17:46] LABS: PHOSPHORUS 1.4 mg/dL (2.5-4.9)
[2019-06-10 17:47] LABS: FREE T4 (FREE THYROXINE) 1.22 ng/dL (0.76-1.46); THYROID STIMULATING HORMONE 3.97 uIU/mL (0.34-3.74)
--- NOTE | 2019-06-10 17:47 | NUR ---
RETURNED BACK FROM CT
[2019-06-10] MEDS ORDERED: SODIUM PHOSPHATE 15 MMOLE in NACL 0.9% 250 ML IV ONE (17:55)
--- NOTE | 2019-06-10 18:28 | NUR ---
Patient will be admitted to care of DR. REBOLLEDO. Admited to TELE. Will go to room 106B. Belongings list completed. Report to BELL EID.
[2019-06-10 18:30] VITALS: BP 126/55
--- NOTE | 2019-06-10 18:30 | NUR ---
RECEIVED REPORT FROM ER NURSE. PATIENT TRANSFERRED TO [facility] BED SAFELY. AAXO4, CALM, COOPERATIVE, SKIN COLOR APPROPRIATE TO ETHNICITY, WARM TO TOUCH. SKIN INTACT. ORIENTED PATIENT TO ROOM AND CALL LIGHT. REVIEWED PLAN OF CARE WITH PATIENT. PATIENT VERBALIZED UNDERSTANDING. SAFETY MEASURES IN PLACE, CALL LIGHT WITHIN REACH. WILL CONTINUE TO MONITOR.
--- NOTE | 2019-06-10 19:15 | NUR ---
GAVE REPORT TO WIRELINE SUPERVISOR NURSE FOR CONTINUITY OF CARE. PATIENT IN STABLE CONDITION.
--- NOTE | 2019-06-10 19:16 | NUR ---
REPORT RECEIVED FROM AM NURSE AT BEDSIDE. PT IN STABLE CONDITION. AAOX4. INTRODUCED SELF TO PT. BOARD UPDATED. NO COMPLAINTS OF PAIN. NO SOB. AFEBRILE. PT IS BEDBOUND. IV SITE R AC 20G RUNNING NS@100ML/HR PATENT AND INTACT. SKIN WARM, DRY, AND INTACT WITH NO OPEN WOUNDS. BED LOCKED IN LOW POSITION. CALL BAUTISTA WITHIN REACH. SAFETY PRECAUTION IN PLACE. ALL NEEDS MET AT THIS TIME.
--- NOTE | 2019-06-10 19:20 | NUR ---
KDUR AND MAGOX GIVEN PO. PT TOLERATED WELL.
[2019-06-10] MEDS: MIRTAZAPINE 15 MG TAB PO SCH (20:41)
[2019-06-10] MEDS: SIMVASTATIN 40 MG TAB PO SCH (20:41)
--- NOTE | 2019-06-10 20:41 | NUR ---
REMERON AND ZOCOR GIVEN PO. ROCEPHIN HUNG AND RUNNING. PT TOLERATED WELL.
[2019-06-10] MEDS: metroNIDAZOLE 500 MG/NS PREMIX 100 ML IV SCH (20:42)
--- NOTE | 2019-06-10 21:22 | NUR ---
SODIUM PHOSPHATE HUNG AND RUNNING. PT TOLERATING WELL. WILL HANG FLAGYL WHEN THIS IS COMPLETE.
--- NOTE | 2019-06-10 23:00 | NUR ---
PT SLEEPING COMFORTABLY BUT AROUSABLE. NO S/S OF DISTRESS NOTED. NO COMPLAINTS OF PAIN. NO SOB. AFEBRILE. WILL CONTINUE TO MONITOR.
[2019-06-11] VITALS: BP 120/62
[2019-06-11] MEDS: guaiFENesin DM 200/20 MG-10 ML 10 ML UDC PO PRN (00:08)
--- NOTE | 2019-06-11 00:08 | NUR ---
ROBITUSSIN GIVEN FOR COUGH. PT TOLERATED WELL.
--- NOTE | 2019-06-11 01:40 | NUR ---
PT SLEEPING COMFORTABLY BUT AROUSABLE. NO S/S OF DISTRESS NOTED. NO COMPLAINTS OF PAIN. NO SOB. AFEBRILE. WILL CONTINUE TO MONITOR.
[2019-06-11] MEDS: NACL 0.9% 1,000 ML IV SCH ×3 (02:07→22:54)
--- NOTE | 2019-06-11 03:20 | NUR ---
PT SLEEPING COMFORTABLY BUT AROUSABLE. NO S/S OF DISTRESS NOTED. RESPIRATIONS EVEN, UNLABORED, AND WNL. WILL CONTINUE TO MONITOR.
[2019-06-11 04:00] VITALS: BP 122/66
[2019-06-11] MEDS: metroNIDAZOLE 500 MG/NS PREMIX 100 ML IV SCH ×3 (04:59→20:47)
--- NOTE | 2019-06-11 04:59 | NUR ---
AMARJIT HUNG AND RUNNING. PT TOLERATING WELL.
--- NOTE | 2019-06-11 06:45 | NUR ---
PT SLEEPING COMFORTABLY BUT AROUSABLE. PT IN STABLE CONDITION.
--- NOTE | 2019-06-11 07:20 | NUR ---
REPORT RECEIVED FROM [employer]LE[employer] SALES REPRESENTATIVE NURSE, PT SLEEPING QUIETLY IN NO ACUTE DISTRESS, AROUSABLE, POC REVIEWED, NO IMMEDIATE NEEDS AT THIS TIME, ALL SAFETY MEASURES IN PLACE, WILL CONTINUE TO MONITOR
[2019-06-11 07:41] LABS: BASOPHILS % (AUTO) 0.2 % (0.0-2.0); EOSINOPHILS # (AUTO) 0.2 K/uL (0-0.4); EOSINOPHILS % (AUTO) 2.9 % (0.0-4.0); HEMATOCRIT 29.2 % (36-48); HEMOGLOBIN 9.5 g/dL (12.0-16.0); LYMPHOCYTES # (AUTO) 1.4 K/uL (2.5-16.5); LYMPHOCYTES % (AUTO) 18.6 % (20.5-51.1); MEAN CORPUSCULAR HEMOGLOBIN 32 pg (27-31); MEAN CORPUSCULAR HGB CONC 33 g/dL (33-37); MEAN CORPUSCULAR VOLUME 97.7 fL (80-94); MONOCYTES # (AUTO) 0.7 K/uL (0.8-1.0); MONOCYTES % (AUTO) 9.3 % (1.7-9.3); PLATELET COUNT (AUTO) 339 K/uL (140-450); RED BLOOD CELL COUNT(AUTO) 2.99 MIL/uL (4.20-5.40); RED CELL DISTRIBUTION WIDTH 14.2 % (11.6-13.7); WHITE BLOOD COUNT (AUTO) 7.3 K/uL (4.8-10.8)
[2019-06-11 08:00] VITALS: BP 141/71
[2019-06-11 08:14] LABS: T4 (THYROXINE) 8.2 ug/dL (4.5-12.0)
[2019-06-11 08:18] LABS: ANION GAP 13.2 (8-16); CARBON DIOXIDE 24.6 mmol/L (21-32); CHLORIDE 111 mmol/L (98-107); GLUCOSE 95 mg/dL (74-106); POTASSIUM 3.8 mmol/L (3.5-5.1); SODIUM SERUM 145 mmol/L (136-145)
[2019-06-11 08:19] LABS: CREATININE 1.3 mg/dL (0.6-1.3); UREA NITROGEN, BLOOD 15 mg/dL (7-18)
[2019-06-11] MEDS: LACTOBACILLUS RHAMNOSUS GG 1 EACH CAP PO SCH (08:34)
[2019-06-11] MEDS: SENNA 8.6 MG TAB PO SCH ×2 (08:35→09:00)
[2019-06-11] MEDS: LACTULOSE 20 GM/30 ML UDC PO SCH ×2 (08:35→09:00)
[2019-06-11] MEDS: ASCORBIC ACID 500 MG TAB PO SCH (08:35)
[2019-06-11] MEDS: ECOTRIN 81 MG TABEC PO SCH (08:35)
[2019-06-11] MEDS: FERROUS SULFATE 325 MG TABEC PO SCH (08:36)
[2019-06-11] MEDS ORDERED: MAG SULF 2000 MG/WATER PREMIX 50 ML IV SCH (09:00)
[2019-06-11] MEDS ORDERED: cefTRIAXone 1,000 MG in LIDOCAINE MPF 1% 2.1 ML IM SCH (09:00)
[2019-06-11] MEDS ORDERED: PANTOPRAZOLE 40 MG TABEC PO SCH (09:00)
--- NOTE | 2019-06-11 09:00 | NUR ---
AM MEDS GIVEN, PT CRISTA WELL, DENIES PAIN OR DISCOMFORT, DENIES ANY IMMEDIATE NEEDS, WILL CONTINUE TO MONITOR.
--- NOTE | 2019-06-11 11:10 | NUR ---
PATIENT HAS BEEN SCREENED AND CATEGORIZED HIGH NUTRITION RISK. PATIENT WILL BE SEEN WITHIN 1-2 DAYS OF ADMISSION. 06/12/19 06/13/[address]
[2019-06-11 12:00] VITALS: BP 124/72
--- NOTE | 2019-06-11 12:05 | NUR ---
PT SITTING UP EATING LUNCH WITH ASSIST, DECREASED APPETITE, CRISTA 30%.
--- NOTE | 2019-06-11 12:29 | NUR ---
SW contacted [facility] at [phone]. Facility did not answer. SW/CM will follow up to complete assessment.
--- NOTE | 2019-06-11 14:10 | NUR ---
PT VOIDED IN BED, PADS CHANGED, PERICARE DONE, PT CRISTA WELL, RIGHT IV SITE SWOLLEN, ARM EDEMATOUS, IV INFILTRATED, DC'D, CATH TIP INTACT, BLEEDING CONTROLLED, R ARM ELEVATED ON PILLOW.
--- NOTE | 2019-06-11 16:05 | NUR ---
IV STARTED TO LEFT WRIST 22G, PT CRISTA WELL, IVF RESUMED
[2019-06-11 16:39] VITALS: BP 120/52
--- NOTE | 2019-06-11 18:09 | NUR ---
PT SITTING UP RESTING QUIETLY IN NO ACUTE DISTRESS, PT DENIES PAIN OR DISCOMFORT, IVF INFUSING WELL, SITE WNL.
--- NOTE | 2019-06-11 19:25 | NUR ---
REPORT GIVEN TO JOURNAL BOX INSPECTOR NURSE, PT IN STABLE CONDITION.
--- NOTE | 2019-06-11 19:27 | NUR ---
Received bedside report from AM nurse. Pt is awake laying supine in bed watching tv. No signs of SOB or distress noted on room air. IV access on Left wrist 22 gauge. Patent, intact and asymptomatic. Board updated. Bed in low position, Safety measures in place. Will continue to monitor patient.
[2019-06-11 20:00] VITALS: BP 135/57
--- NOTE | 2019-06-11 20:05 | NUR ---
Endorsed to PM shift nurse Ngozi for continuity of care. Pt awake and in stable condition.
--- NOTE | 2019-06-11 20:06 | NUR ---
RECEIVED BEDSIDE REPORT. PT IS AAO X4. RESPIRATIONS ARE EQUAL AND UNLABORED. IV TO L WRIST 22G IVF PER ORDERS. DX COLITIS AND UTI PT ON FLAGYL. ABLE TO SWALLOW MEDICATION. HAD PT EVALUATION TODAY SHE WAS TOO WEAK TO AMBULATE ON BEDREST USES BEDPAN. SKIN IS INTACT. VSS. POC DISCUSSED WITH PT. CALL LIGHT IS WITHIN REACH. WILL CONTINUE TO MONITOR.
[2019-06-11] MEDS: MIRTAZAPINE 15 MG TAB PO SCH (20:47)
[2019-06-11] MEDS: SIMVASTATIN 40 MG TAB PO SCH (20:47)
[2019-06-11] MEDS: GABAPENTIN 300 MG CAP PO SCH (20:47)
--- NOTE | 2019-06-11 20:47 | NUR ---
SELVIN MEDICATIONS GIVEN PER ORDERS. PT TOLERATED WELL. ALL NEEDS MET AT THIS TIME. CALL LIGHT IS WITHIN REACH.
--- NOTE | 2019-06-11 22:30 | NUR ---
PATIENT IS SLEEPING COMFORTABLY IN BED. CHEST RISE AND FALL. CALL LIGHT IS WITHIN REACH. SAFETY MEASURES ARE IN PLACE.
[2019-06-12] VITALS (7 sets, daily range): BP systolic 118–153; BP diastolic 48–80
--- NOTE | 2019-06-12 | NUR ---
VITAL SIGNS ARE WITHIN NORMAL LIMITS. ALL NEEDS MET AT THIS TIME. CALL LIGHT IS WITHIN REACH.
--- NOTE | 2019-06-12 02:11 | NUR ---
PATIENT IS SLEEPING COMFORTABLY IN BED. NO S/S OF DISTRESS. SAFETY MEASURES ARE IN PLACE. CALL LIGHT IS WITHIN REACH.
[2019-06-12] MEDS: metroNIDAZOLE 500 MG/NS PREMIX 100 ML IV SCH ×3 (04:01→21:20)
--- NOTE | 2019-06-12 04:15 | NUR ---
VITAL SIGNS ARE WITHIN NORMAL LIMITS. ALL NEEDS MET AT THIS TIME. CALL LIGHT IS WITHIN REACH.
--- NOTE | 2019-06-12 06:30 | NUR ---
TRANS IN FROM TELEMETRY PER BED THIS 65 YEAR OLD PATIENT FOR CONTINUITY OF CARE. ASSISTED TO ICU 7; HOOKED TO CRUCIBLE FURNACE TENDER, SCOPE SHOWS ON SINUS RHYTHM HR 83/MIN BP 117/53. ON ROOM AIR, BREATHING EVEN AND UNLABORED; S02 96%. ABDOMEN SOFT, AND NON TENDER. ALERT AND ABLE TO FOLLOW COMMANDS.IVF IN PROGRESS NORMAL SALINE AT 100 ML/HR VIA G 22 IV CANNULA ON LEFT WRIST;PATENT AND INTACT.
--- NOTE | 2019-06-12 06:33 | NUR ---
GAVE BEDSIDE REPORT TO CHING RN. PT ENDORSED IN STABLE CONDITION.
--- NOTE | 2019-06-12 07:20 | NUR ---
RECEIVED REPORT FROM FURS SALESPERSON RN. PT IS ASLEEP, AROUSABLE TO LIGHT TOUCH. ABLE TO FOLLOW COMMANDS. DENIES PAIN. AFEBRILE. NORMAL SINUS RHYTHM ON MONITOR. S1 S2 HEARD. PULSES PALPABLE TO ALL EXTREMITIES. CAP REFILL < 2 SEC. PT IS ON ROOM AIR. LUNGS SOUND CLEAR BILATERALLY. NO SOB NOTED. BREATHING EVEN AND UNLABORED. ABDOMEN ROUND, SOFT, NONTENDER WITH ACTIVE BOWEL SOUNDS X 4 QUADRANTS. PERIPHERAL IV G22 TO LEFT WRIST ASYMPTOMATIC, PATENT AND INTACT WITH GOOD BLOOD RETURN, RUNNING IVF NS AT 100 ML/HR. SKIN IS INTACT, DRY AND WARM TO TOUCH. NO BM NOTED AT THIS TIME. SCDS PLACED FOR VTE PROPHYLAXIS. HOB 30 DEGREES. BED IN LOWEST POSITION LOCKED. CALL LIGHT WITHIN REACH. NO SIGNS OF DISTRESS NOTED. WILL CONTINUE TO MONITOR.
--- NOTE | 2019-06-12 07:50 | NUR ---
DR. REBOLLEDO AND RESIDENT GROUP IN TO SEE PT. WILL FOLLOW UP ON ORDERS.
[2019-06-12] MEDS: ASCORBIC ACID 500 MG TAB PO SCH (08:31)
[2019-06-12] MEDS: ECOTRIN 81 MG TABEC PO SCH (08:31)
[2019-06-12] MEDS: LACTULOSE 20 GM/30 ML UDC PO SCH (08:31)
[2019-06-12] MEDS: PANTOPRAZOLE 40 MG TABEC PO SCH (08:32)
[2019-06-12] MEDS: LACTOBACILLUS RHAMNOSUS GG 1 EACH CAP PO SCH (08:32)
[2019-06-12] MEDS: FERROUS SULFATE 325 MG TABEC PO SCH (08:32)
[2019-06-12] MEDS: SENNA 8.6 MG TAB PO SCH (08:32)
--- NOTE | 2019-06-12 08:50 | NUR ---
MEDICATIONS ADMINISTERED ORDERED. PT TOLERATED WELL.
[2019-06-12] MEDS: NACL 0.9% 1,000 ML IV SCH ×2 (09:06→18:07)
[2019-06-12] MEDS ORDERED: SIMETHICONE 80 MG TAB.CHEW PO PRN (09:10)
--- NOTE | 2019-06-12 09:10 | NUR ---
PT C/O FEELING GASSY IN STOMACH. DR. CERVANTES MADE AWARE. WILL FOLLOW UP ON ORDERS.
[2019-06-12 09:44] LABS: BASOPHILS % (AUTO) 0.3 % (0.0-2.0); EOSINOPHILS # (AUTO) 0.1 K/uL (0-0.4); EOSINOPHILS % (AUTO) 1.3 % (0.0-4.0); HEMATOCRIT 32.7 % (36-48); HEMOGLOBIN 10.4 g/dL (12.0-16.0); LYMPHOCYTES # (AUTO) 1.3 K/uL (2.5-16.5); LYMPHOCYTES % (AUTO) 17.4 % (20.5-51.1); MEAN CORPUSCULAR HEMOGLOBIN 31 pg (27-31); MEAN CORPUSCULAR HGB CONC 32 g/dL (33-37); MEAN CORPUSCULAR VOLUME 98.9 fL (80-94); MONOCYTES # (AUTO) 0.7 K/uL (0.8-1.0); MONOCYTES % (AUTO) 8.8 % (1.7-9.3); NEUTROPHILS # (AUTO) 5.4 K/uL (1.8-7.7); NEUTROPHILS % (AUTO) 72.2 % (42.2-75.2); PLATELET COUNT (AUTO) 409 K/uL (140-450); RED BLOOD CELL COUNT(AUTO) 3.31 MIL/uL (4.20-5.40); RED CELL DISTRIBUTION WIDTH 14.3 % (11.6-13.7); WHITE BLOOD COUNT (AUTO) 7.5 K/uL (4.8-10.8)
--- NOTE | 2019-06-12 09:44 | NUR ---
SIMETHICONE ADMINISTERED FOR GAS. NO S/SX OF DISTRESS NOTED. SAFETY PRECAUTIONS IN PLACE AND CALL LIGHT WITHIN REACH. WILL CONTINUE TO MONITOR.
[2019-06-12 09:55] LABS: ANION GAP 13.1 (8-16); CARBON DIOXIDE 23.6 mmol/L (21-32); CHLORIDE 112 mmol/L (98-107); CREATININE 1.2 mg/dL (0.6-1.3); GLUCOSE 78 mg/dL (74-106); POTASSIUM 3.7 mmol/L (3.5-5.1); SODIUM SERUM 145 mmol/L (136-145); UREA NITROGEN, BLOOD 11 mg/dL (7-18)
[2019-06-12 10:05] LABS: MAGNESIUM 1.5 mg/dL (1.8-2.4); PHOSPHORUS 3.1 mg/dL (2.5-4.9)
--- NOTE | 2019-06-12 10:25 | NUR ---
DR. CERVANTES MADE AWARE OF LOW MAGNESIUM LEVEL OF 1.5. WILL FOLLOW UP ON ORDERS.
[2019-06-12] MEDS ORDERED: MAG SULF 2000 MG/WATER PREMIX 100 ML IV SCH ×2 (11:30→19:00)
--- NOTE | 2019-06-12 11:45 | NUR ---
DC planning: Clinicals [facility]ed to [facility] . Spoke with Vi from admissions and they will provide transportation for the pt.
--- NOTE | 2019-06-12 12:30 | NUR ---
PT HAD LARGE AMOUNT OF BOWEL MOVEMENT. CLEANED AND REPOSITIONED FOR COMFORT AND PRESSURE AREAS OFF LOADED. PT'S SKIN INTACT, BLANCHABLE REDNESS NOTED TO SACRAL AREA. VSS. NO SIGNS OF DISTRESS NOTED. SAFETY MEASURES IN PLACE. WILL CONTINUE TO MONITOR.
--- NOTE | 2019-06-12 13:11 | NUR ---
06/12/2019 RD INITIAL ASSESSMENT COMPLETED PLEASE REFER TO NUTRITION ASSESSMENT UNDER CARE ACTIVITY FOR ESTIMATED NUTRITIONAL NEEDS. RECOMMEND ADDITION OF ENSURE TID TO PT MEALS, SPOKE WITH RN, SONAM REGARDING RECOMMENDATION RD TO FOLLOW-UP IN 2-3 DAYS PATIENT IS HIGH RISK. EIRCKA SAM, RD
--- NOTE | 2019-06-12 14:27 | NUR ---
Sp[facility] with [facility] and they are accepting the pt and will be going to room 110. Informed Vi that the ICU nurse will call them the time the pt can be picked up from [facility].
--- NOTE | 2019-06-12 14:29 | NUR ---
Accepting MD in [facility] is Dr. Barragan
--- NOTE | 2019-06-12 14:57 | NUR ---
NO CHANGE IN CONDITION AT THIS TIME. VSS. PT WATCHING TV. DENIES PAIN. SAFETY PRECAUTIONS IN PLACE.
--- NOTE | 2019-06-12 17:55 | NUR ---
PT TAKING A NAP. ASKED PT DINNER IS HERE AND IF SHE WANTS TO EAT. PT STATED SHE STILL WANT TO TAKE A NAP AND WILL EAT LATER. VSS. SAFETY MEASURES IN PLACE.
--- NOTE | 2019-06-12 19:13 | NUR ---
REPORT GIVEN TO FRONT LOAD TRASH TRUCK DRIVER RN FOR CONTINUITY OF CARE. PT IS IN STABLE CONDITION.
--- NOTE | 2019-06-12 19:45 | NUR ---
PT AAOX2, FOLLOWING COMMANDS, ABLE TO MAKE NEEDS KNOWN. +3 PERRL. S1 S2, SINUS RHYTHM WITH 1 DEGREE AVB. + 2 LAUREN RADIAL, +1 LAUREN PEDAL PULSES. NO EDEMA NOTED. LUNGS CLEAR TO BILATERAL UPPER LOBES, DIMINISHED @ BASES. ABD SOFT NON DISTENDED, LAST BM TODAY. PT INCONTINENT; YELLOW URINE. SKIN INTACT, BLANCHABLE REDNESS TO BUTTOCKS AREA. GENERALIZED WEAKNESS NOTED. IV TO L WRIST 22 G WITH NORMAL SALINE @ 100 ML/HR. STANDARD PRECAUTIONS. BED LOCKED IN LOWEST POSITION. WILL CONTINUE TO OBSERVE.
--- NOTE | 2019-06-12 20:35 | NUR ---
PT TRANSFERRED TO [facility] 107 B. REPORT GIVEN TO ESTEFANÍA LUU FOR CONTINUITY OF CARE.
--- NOTE | 2019-06-12 20:36 | NUR ---
RECEIVED PT FROM CHIEF FISHERY DIVISION RAKEL RN, PT STABLE, NO DISTRESS NOTED, IV TO L HAND 22G PATENT INTACT, INFUSING WELL, PT ON ROOM AIR, NO SOB NOTED, PT RESTING, NO DISTRESS NOTED, CALL LIGHT WITHIN REACH, WILL CONTINUE TO MONITOR.
[2019-06-12] MEDS: GABAPENTIN 300 MG CAP PO SCH (21:17)
[2019-06-12] MEDS: SIMVASTATIN 40 MG TAB PO SCH (21:17)
[2019-06-12] MEDS: MIRTAZAPINE 15 MG TAB PO SCH (21:18)
--- NOTE | 2019-06-12 21:20 | NUR ---
DUE MEDICATION PER MD ORDER, PT TOLERATED WELL, NO DISTRESS NOTED, CALL LIGHT WITHIN REACH, WILL CONTINUE TO MONITOR.
[2019-06-12] MEDS: MEROPENEM 500 MG in NACL 0.9% 50 ML IV SCH (22:43)
[2019-06-13] VITALS: BP 123/48
--- NOTE | 2019-06-13 01:05 | NUR ---
ENDORSED PT TO MEG LUU FOR CONTINUOUS OF CARE. PT STABLE, NO DISTRESS NOTED, CALL LIGHT WITHIN REACH.
--- NOTE | 2019-06-13 01:06 | NUR ---
RECEIVED PT FROM CHARGE NURSE, ESTEFANÍA FOR CONTINUOS CARE. PT HAD DIARRHEA. CHANGED PT, COLLECTED STOOL AND SENT TO THE LAB DR. KIMBROUGH.
[2019-06-13] MEDS: NACL 0.9% 1,000 ML IV SCH ×2 (01:37→14:07)
[2019-06-13 04:00] VITALS: BP 123/35
[2019-06-13] MEDS: MEROPENEM 500 MG in NACL 0.9% 50 ML IV SCH ×3 (04:08→20:27)
--- NOTE | 2019-06-13 04:08 | NUR ---
GIVEN MEROPENEM MD ORDERED. PT TOLERATED WELL. VS CHECKED. WITHIN PT'S BASELINE. WILL CONTINUE TO MONITOR.
[2019-06-13] MEDS: metroNIDAZOLE 500 MG/NS PREMIX 100 ML IV SCH ×3 (04:45→21:08)
--- NOTE | 2019-06-13 04:45 | NUR ---
GIVEN FLAGYL MD ORDERED. PT TOLERATED WELL.
--- NOTE | 2019-06-13 06:48 | NUR ---
PT SLEEPING IN THE BED. NO ACUTE DISTRESS NOTED.
--- NOTE | 2019-06-13 07:07 | NUR ---
RECEIVED REPORT FROM NIGHT RN. PATIENT IS FULL CODE, ALLERGIES TO LIDOCAINE, CAME FROM [facility]. PT IS ON CONTACT FOR SUSPECTED C.DIFF. AAOX3 BY ENDORSEMENT. PATIENT IS SLEEPING IN BED, VISIBLE CHEST RISE AND FALL. PLAN WAS FOR DC BUT CANCELLED D/T DIARRHEA EPISODES CONTINUED. WILL REVIEW AND CONTINUE PLAN OF CARE FOR THE DAY.
[2019-06-13 07:38] LABS: ANION GAP 12.7 (8-16); CARBON DIOXIDE 23.5 mmol/L (21-32); CHLORIDE 114 mmol/L (98-107); CREATININE 1.2 mg/dL (0.6-1.3); GLUCOSE 109 mg/dL (74-106); PHOSPHORUS 2.5 mg/dL (2.5-4.9); POTASSIUM 3.2 mmol/L (3.5-5.1); SODIUM SERUM 147 mmol/L (136-145); UREA NITROGEN, BLOOD 12 mg/dL (7-18)
[2019-06-13 07:46] LABS: BASOPHILS % (AUTO) 0.2 % (0.0-2.0); EOSINOPHILS # (AUTO) 0.2 K/uL (0-0.4); EOSINOPHILS % (AUTO) 1.8 % (0.0-4.0); HEMATOCRIT 27.4 % (36-48); HEMOGLOBIN 8.9 g/dL (12.0-16.0); LYMPHOCYTES # (AUTO) 1.1 K/uL (2.5-16.5); LYMPHOCYTES % (AUTO) 12.4 % (20.5-51.1); MEAN CORPUSCULAR HEMOGLOBIN 32 pg (27-31); MEAN CORPUSCULAR HGB CONC 32 g/dL (33-37); MEAN CORPUSCULAR VOLUME 98.1 fL (80-94); MONOCYTES # (AUTO) 0.6 K/uL (0.8-1.0); MONOCYTES % (AUTO) 6.5 % (1.7-9.3); NEUTROPHILS # (AUTO) 6.8 K/uL (1.8-7.7); NEUTROPHILS % (AUTO) 79.1 % (42.2-75.2); PLATELET COUNT (AUTO) 418 K/uL (140-450); RED BLOOD CELL COUNT(AUTO) 2.79 MIL/uL (4.20-5.40); RED CELL DISTRIBUTION WIDTH 13.9 % (11.6-13.7); WHITE BLOOD COUNT (AUTO) 8.6 K/uL (4.8-10.8)
[2019-06-13 08:00] VITALS: BP 103/40
[2019-06-13 08:09] LABS: FOLIC ACID > 20.00 ng/mL (>3.0)
[2019-06-13] MEDS: FERROUS SULFATE 325 MG TABEC PO SCH (09:23)
[2019-06-13] MEDS: LACTOBACILLUS RHAMNOSUS GG 1 EACH CAP PO SCH (09:23)
[2019-06-13] MEDS: PANTOPRAZOLE 40 MG TABEC PO SCH (09:23)
[2019-06-13] MEDS: ECOTRIN 81 MG TABEC PO SCH (09:23)
[2019-06-13] MEDS: ASCORBIC ACID 500 MG TAB PO SCH (09:24)
--- NOTE | 2019-06-13 09:30 | NUR ---
ADMINISTERED MORNING MEDICATION. PATIENT TOLERATED WELL. PT IS NOW SITTING UP IN BED EATING BREAKFAST. NO COMPLAINTS AT THIS TIME.
--- NOTE | 2019-06-13 10:05 | NUR ---
ADMINISTERED KDURR 40MEQ PO FOR LOW LEVEL OF POTASSIUM.
[2019-06-13] MEDS ORDERED: POTASSIUM CHLORIDE 10 MEQ TABER PO SCH (11:07)
[2019-06-13 12:00] VITALS: BP 112/49
[2019-06-13] MEDS ORDERED: SODIUM FERRIC GLUCONATE 125 MG in NACL 0.9% 100 ML IV SCH (12:00)
--- NOTE | 2019-06-13 12:30 | NUR ---
PATIENT RESTING IN BED EATING LUNCH. NO C/O AT THIS TIME.
--- NOTE | 2019-06-13 13:15 | NUR ---
BEGAN INFUSION OF NEXT DOSE OF FLAGYL. PATIENT RESTING QUIETLY IN BED.
--- NOTE | 2019-06-13 15:30 | NUR ---
CHANGED PATIENTS SHEETS WITH TIRE MANAGER MARILEE. PATIENT HAD X3 VOIDS.
[2019-06-13 16:00] VITALS: BP 105/50
--- NOTE | 2019-06-13 16:17 | NUR ---
ADMINISTERED TYLENOL 650MG FOR FEVER OF 100.4
--- NOTE | 2019-06-13 19:25 | NUR ---
RECEIVED BEDSIDE REPORT FROM DAY SHIFT NURSE CIARAN RN, PT STABLE, NO DISTRESS NOTED, IV TO L HAND 22G PATENT INTACT, INFUSING WELL, PT ON ROOM AIR, NO SOB NOTED, INITIAL ASSESSMENT DONE, ALL SAFETY PRECAUTION MET, CALL LIGHT WITHIN REACH, WILL CONTINUE TO MONITOR.
[2019-06-13 20:00] VITALS: BP 106/44
[2019-06-13] MEDS: MIRTAZAPINE 15 MG TAB PO SCH (20:26)
[2019-06-13] MEDS: SIMVASTATIN 40 MG TAB PO SCH (20:26)
[2019-06-13] MEDS: GABAPENTIN 300 MG CAP PO SCH (20:26)
--- NOTE | 2019-06-13 20:27 | NUR ---
DUE MEDICATION ADMINISTERED, PT TOLERATE DWELL, NO DISTRESS NOTED, CALL LIGHT WITHIN REACH, WILL CONTINUE TO MONITOR.
--- NOTE | 2019-06-13 22:40 | NUR ---
CHANGED AND REPOSITION PT WITH HELP OF CNAS, PT TOLERATED WELL, NO DISTRESS NOTED, CALL LIGHT WITHIN REACH, WILL CONTINUE TO MONITOR.
[2019-06-14] VITALS: BP 110/52
--- NOTE | 2019-06-14 00:01 | NUR ---
CHECKED ON PT, PT RESTING, V/S TAKEN, WNL, CALL LIGHT WITHIN REACH, WILL CONTINUE TO MONITOR.
--- NOTE | 2019-06-14 02:33 | NUR ---
PT SLEEPING, NO DISTRESS NOTED, CALL LIGHT WITHIN REACH, WILL CONTINUE TO MONITOR.
[2019-06-14 04:00] VITALS: BP 120/54
[2019-06-14] MEDS: MEROPENEM 500 MG in NACL 0.9% 50 ML IV SCH ×3 (04:25→20:49)
[2019-06-14] MEDS: NACL 0.9% 1,000 ML IV SCH (04:26)
--- NOTE | 2019-06-14 04:31 | NUR ---
PT RESTING, NO DISTRESS NOTED, CALL LIGHT WITHIN REACH, WILL CONTINUE TO MONITOR.
[2019-06-14] MEDS: metroNIDAZOLE 500 MG/NS PREMIX 100 ML IV SCH (05:24)
[2019-06-14 07:05] LABS: ANION GAP 12.1 (8-16); CARBON DIOXIDE 23.8 mmol/L (21-32); CHLORIDE 116 mmol/L (98-107); CREATININE 1.2 mg/dL (0.6-1.3); GLUCOSE 79 mg/dL (74-106); POTASSIUM 3.9 mmol/L (3.5-5.1); SODIUM SERUM 148 mmol/L (136-145); UREA NITROGEN, BLOOD 11 mg/dL (7-18)
--- NOTE | 2019-06-14 07:10 | NUR ---
RECEIVED REPORT FROM NIGHT RN. PATIENT IS ON ROOM AIR, SLEEPING, VISIBLE CHEST RISE AND FALL. PATIENT IS FULL CODE, ALLERGIES TO LIDOCAINE. BEDBOUND, FALL RISK, AAOX3. PT ON ROOM AIR, LEFT WRIST 22G, NS INFUSING AT 100ML/HR. PT IS ON CCHO60 DIET, ON CONTACT PRECAUTIONS FOR POSSIBLE C.DIFF. WILL CONTINUE WITH PLAN OF CARE FOR THE DAY.
--- NOTE | 2019-06-14 07:16 | NUR ---
ENDORSED PT TO DAY SHIFT NURSE RN CIARAN, ZITA RESTING, NO DISTRESS NOTED, CALL LIGHT WITHIN REACH.
[2019-06-14 07:27] LABS: BASOPHILS % (AUTO) 0.3 % (0.0-2.0); EOSINOPHILS # (AUTO) 0.2 K/uL (0-0.4); EOSINOPHILS % (AUTO) 3.5 % (0.0-4.0); HEMATOCRIT 28.2 % (36-48); HEMOGLOBIN 9.3 g/dL (12.0-16.0); LYMPHOCYTES # (AUTO) 1.6 K/uL (2.5-16.5); LYMPHOCYTES % (AUTO) 27.5 % (20.5-51.1); MEAN CORPUSCULAR HEMOGLOBIN 32 pg (27-31); MEAN CORPUSCULAR HGB CONC 33 g/dL (33-37); MEAN CORPUSCULAR VOLUME 98.3 fL (80-94); MONOCYTES # (AUTO) 0.6 K/uL (0.8-1.0); MONOCYTES % (AUTO) 9.3 % (1.7-9.3); NEUTROPHILS # (AUTO) 3.5 K/uL (1.8-7.7); NEUTROPHILS % (AUTO) 59.4 % (42.2-75.2); PLATELET COUNT (AUTO) 426 K/uL (140-450); RED BLOOD CELL COUNT(AUTO) 2.87 MIL/uL (4.20-5.40); RED CELL DISTRIBUTION WIDTH 14.5 % (11.6-13.7); WHITE BLOOD COUNT (AUTO) 5.9 K/uL (4.8-10.8)
[2019-06-14] MEDS: NACL 0.45% 1,000 ML IV SCH (07:30)
[2019-06-14 08:00] VITALS: BP 122/49
[2019-06-14] MEDS: PANTOPRAZOLE 40 MG INJ VIAL IVP SCH (08:44)
[2019-06-14] MEDS: LACTOBACILLUS RHAMNOSUS GG 1 EACH CAP PO SCH (08:45)
[2019-06-14] MEDS: FERROUS SULFATE 325 MG TABEC PO SCH (08:45)
[2019-06-14] MEDS: ASCORBIC ACID 500 MG TAB PO SCH (08:46)
--- NOTE | 2019-06-14 09:00 | NUR ---
ADMINISTERED MORNING MEDICATION. PATIENT TOLERATED WELL.
--- NOTE | 2019-06-14 10:30 | NUR ---
REMOVED IV LINE FROM LEFT HAND, CANNULA INTACT. NEW IV TO LEFT FOREARM 24G.
[2019-06-14 12:00] VITALS: BP 119/53
--- NOTE | 2019-06-14 15:30 | NUR ---
SPOKE TO THE CHEESE PANCAKE ROLLER FROM [facility], AT [phone]. I ASKED IF THEY HAD A BED AVAILABLE FOR THE PATIENT TO GO BACK. HE SAID HE DOES BUT THEIR COMPUTER SYSTEM IS DOWN AND UNABLE TO ACCEPT THE PATIENT AT THIS TIME. HE SAID TO DISCHARGE THE PATIENT TOMORROW. DR MONTANEZ IS AWARE.
[2019-06-14 16:00] VITALS: BP 130/53
--- NOTE | 2019-06-14 16:30 | NUR ---
PATIENT IS RESTING QUIETLY IN BED. NO COMPLAINTS AT THIS TIME, DENIES PAIN.
--- NOTE | 2019-06-14 18:33 | NUR ---
PATIENT IS RESTING IN BED EATING DINNER. NO COMPLAINTS AT THIS TIME, ALL NEEDS HAVE BEEN MET. WILL ENDORSE TO RESTAURANT EXPEDITOR FOR CONTINUITY OF CARE.
--- NOTE | 2019-06-14 19:10 | NUR ---
RECEIVED BEDSIDE REPORT FROM AM SHIFT NURSE CIARAN. PATIENT IS LAYING SUPINE ON BED. AWAKE AND ALERT WATCHING TV. NO SIGNS OF SOB OR DISTRESS NOTED. ON ROOM AIR. IV ACCESS ON LEFT FOREARM 24 GAUGE, PATENT AND INTACT, INFUSING WELL. SAFETY PRECAUTIONS IN PLACE. CALL LIGHT WITHIN PATIENT REACH. WILL CONTINUE TO MONITOR PATIENT.
[2019-06-14 20:10] VITALS: BP 111/47
[2019-06-14] MEDS: GABAPENTIN 300 MG CAP PO SCH (20:49)
[2019-06-14] MEDS: SIMVASTATIN 40 MG TAB PO SCH (20:50)
[2019-06-14] MEDS: MIRTAZAPINE 15 MG TAB PO SCH (20:50)
--- NOTE | 2019-06-14 20:50 | NUR ---
DUE MEDS GIVEN ORDERED. TOLERATED WELL.
[2019-06-14] MEDS: guaiFENesin DM 200/20 MG-10 ML 10 ML UDC PO PRN (23:16)
[2019-06-15 00:23] VITALS: BP 129/53
--- NOTE | 2019-06-15 00:26 | NUR ---
VITAL SIGNS TAKEN. VISIBLE CHEST RISE AND FALL NOTED. WILL CONTINUE TO MONITOR PATIENT.
--- NOTE | 2019-06-15 00:38 | NUR ---
PT SLEEPING COMFORTABLY. ENDORSED TO PM SHIFT RN, LILLIAN FOR CONTINUITY OF CARE.
--- NOTE | 2019-06-15 00:39 | NUR ---
RECEIVED PT FROM MARAH RN PT AWAKE AAOX2, ON TELMETRY SR NOT DISTRES NOTED, IV ON LEFT WRIST GAUGE # 24 INFUSING WELL REPOSITIONED INITIAL ASSESSMENT DONE
[2019-06-15 04:00] VITALS: BP 106/40
--- NOTE | 2019-06-15 04:00 | NUR ---
SPONGE BATH GIVEN LINEN CHANGED, ON TELEMETRY SR, NOT DISTRESS NOTED, REPOSITIONED Q2H
[2019-06-15] MEDS: MEROPENEM 500 MG in NACL 0.9% 50 ML IV SCH ×2 (04:35→12:54)
[2019-06-15] MEDS: NACL 0.45% 1,000 ML IV SCH (04:36)
--- NOTE | 2019-06-15 06:24 | NUR ---
PT WILLL BE ENDORSED TO DAY SHIFT NURSE FOR CONTINUE OF CARE
--- NOTE | 2019-06-15 07:25 | NUR ---
RECEIVED BEDSIDE REPORT FROM RECTIFYING ATTENDANT NURSE FOR CONTINUITY OF CARE. PATIENT IS RESTING ON BED AT THIS TIME. AROUDSABLE VOICE. PATIENT IS AAOX3 TO NAME, PLACE, AND DATE. RESPIRATION EVEN AND UNLABORED ON RA. DENIED PAIN, SOB, AND DIZZINESS. NO SIGNS OF DISTRESS NOTED. IV ON L HAND 24G, CLEAN AND INTACT, SL. PATIENT IS INCONTINENT AND BEDREST AT THIS TIME. DISCUSSED PLAN OF CARE WITH PATIENT AND PATIENT VERBALIZED OK. CONTACT PRECAUTION IN PLACE AND SIGN POSTED. SAFETY MEASURES IN PLACE. BED IN LOW POSITION AND CALL LIGHT WITHIN REACH. FALL RISK PROTOCOL IN PLACE. INSTRUCTED PATIENT TO USE THE CALL LIGHT FOR ANY ASSISTANCE AND PATIENT WAS AWARE.
[2019-06-15 08:00] VITALS: BP 142/63
[2019-06-15 08:07] LABS: FOLIC ACID > 20.00 ng/mL (>3.0)
[2019-06-15] MEDS: FERROUS SULFATE 325 MG TABEC PO SCH (08:48)
[2019-06-15] MEDS: ASCORBIC ACID 500 MG TAB PO SCH (08:48)
[2019-06-15] MEDS: LACTOBACILLUS RHAMNOSUS GG 1 EACH CAP PO SCH (08:48)
[2019-06-15] MEDS: PANTOPRAZOLE 40 MG INJ VIAL IVP SCH (08:49)
--- NOTE | 2019-06-15 08:49 | NUR ---
ADMINISTERED MEDS PER MD ORDER, PATIENT TOLERATED WELL. MEDS EDUCATION PROVIDED TO PATIENT AND PATIENT VERBALIZED UNDERSTANDING. PATIENT REQUESTED TO HEAT UP HER BREAKFAST TRAY, HEATED PER PATIENT REQUESTS. PATIENT IS EATING HER BREAKFAST AND WATCHING TV ON BED AT THIS TIME. NO SIGNS OF DISTRESS NOTED. SAFETY MEASURES IN PLACE. BED IN LOW POSITION AND CALL LIGHT WITHIN REACH. FALL RISK PROTOCOL IN PLACE. INSTRUCTED PATIENT TO USE THE CALL LIGHT FOR ANY ASSISTANCE AND PATIENT WAS AWARE.
[2019-06-15] MEDS ORDERED: SENNA 8.6 MG TAB PO SCH (09:00)
--- NOTE | 2019-06-15 09:40 | NUR ---
PATIENT AWAKE AND WATCHING TV ON BED AT THIS TIME. DENIED SOB, PAIN, DIZZINESS. NO SIGNS OF DISTRESS NOTED. SAFETY MEASURES IN PLACE. BED IN LOW POSITION AND CALL LIGHT WITHIN REACH. TELE MONITOR ATTACHED. FALL RISK PROTOCOL IN PLACE. INSTRUCTED PATIENT TO USE THE CALL LIGHT FOR ANY ASSISTANCE AND PATIENT WAS AWARE.
[2019-06-15 09:43] LABS: BASOPHILS % (AUTO) 0.5 % (0.0-2.0); EOSINOPHILS # (AUTO) 0.2 K/uL (0-0.4); EOSINOPHILS % (AUTO) 2.8 % (0.0-4.0); HEMOGLOBIN 10.3 g/dL (12.0-16.0); LYMPHOCYTES # (AUTO) 1.7 K/uL (2.5-16.5); LYMPHOCYTES % (AUTO) 22.5 % (20.5-51.1); MEAN CORPUSCULAR HEMOGLOBIN 33 pg (27-31); MEAN CORPUSCULAR HGB CONC 33 g/dL (33-37); MONOCYTES # (AUTO) 0.6 K/uL (0.8-1.0); MONOCYTES % (AUTO) 7.9 % (1.7-9.3); NEUTROPHILS # (AUTO) 5.1 K/uL (1.8-7.7); NEUTROPHILS % (AUTO) 66.3 % (42.2-75.2); PLATELET COUNT (AUTO) 529 K/uL (140-450); RED BLOOD CELL COUNT(AUTO) 3.16 MIL/uL (4.20-5.40); RED CELL DISTRIBUTION WIDTH 14.3 % (11.6-13.7); WHITE BLOOD COUNT (AUTO) 7.7 K/uL (4.8-10.8)
[2019-06-15 10:20] LABS: ANION GAP 12.2 (8-16); CARBON DIOXIDE 24.9 mmol/L (21-32); CHLORIDE 112 mmol/L (98-107); CREATININE 1.2 mg/dL (0.6-1.3); GLUCOSE 74 mg/dL (74-106); POTASSIUM 4.1 mmol/L (3.5-5.1); SODIUM SERUM 145 mmol/L (136-145); UREA NITROGEN, BLOOD 8 mg/dL (7-18)
--- NOTE | 2019-06-15 11:23 | NUR ---
PATIENT AWAKE AND WATCHING TV ON BED AT THIS TIME. DENIED SOB, PAIN,NAUSEA AND VOMITING. NO SIGNS OF DISTRESS NOTED. SAFETY MEASURES IN PLACE. BED IN LOW POSITION AND CALL LIGHT WITHIN REACH. TELE MONITOR ATTACHED. FALL RISK PROTOCOL IN PLACE. INSTRUCTED PATIENT TO USE THE CALL LIGHT FOR ANY ASSISTANCE AND PATIENT WAS AWARE.
--- NOTE | 2019-06-15 11:32 | NUR ---
CALLED [facility] SPOKE WITH EUGENE , ACCEPTED PT CAN GO TO ROOM 110A #TO GIVE REPORT [phone] ARRANGED TRANSPORT WITH [facility] COORDINATOR TIME 2:30 PM PER [facility] WILL PAY FOR TRANSPORT .NOTIFIED VANITA LUU
--- NOTE | 2019-06-15 11:36 | NUR ---
NOTIFIED DORIAN [phone] THAT PATIENT WILL BE TRANSFER TO [facility] AT [place] [phone] FOR CONTINUED ANTIBIOTIC AND PHYSICAL THERAPY. DORIAN WAS AWARE OF THE TRANSFER. PROVIDED A CALL BACK NUMBER FOR ANY FURTHER QUESTION.
--- NOTE | 2019-06-15 11:50 | NUR ---
CALLED [facility] [phone] AND FULL REPORT GAVE TO ASHUTOSH Mead RN. ANSWERED ALL ASHUTOSH Mead RN 'S QUESTIONS AND PROVIDED A CALL BACK NUMBER FOR FURTHER QUESTION. ASHUTOSH WAS AWARE THAT PATIENT IS GOING TO [facility] AT 1PM FROM THE HOSPITAL AND TRANSFER TO HER FACILITY ROOM 10A.
[2019-06-15 12:00] VITALS: BP 121/59
[2019-06-15] MEDS ORDERED: MERO500P2 IV (12:14)
--- NOTE | 2019-06-15 12:54 | NUR ---
ADMINISTERED MED VIA IVPB PER MD ORDER, MED EDUCATION PROVIDED TO PATIENT AND REINFORCEMENT NEEDED. DIRECTOR FIXED INCOME HAS CHANGED PATIENT INTO [facility] AND PATIENT IS READY TO BE TRANSFER, AWAITING FOR TRANSPORTATION TO ARRIVE. PATIENT AWAKE AND WATCHING TV ON BED. TELE MONITOR ATTACHED. NO SIGNS OF DISTRESS NOTE. SAFETY MEASURES IN PLACE. BED IN LOW POSITION AND CALL LIGHT WITHIN REACH.
--- NOTE | 2019-06-15 13:25 | NUR ---
PATIENT AWAKE AND WATCHING TV ON BED AT THIS TIME. DENIED SOB, PAIN,NAUSEA AND VOMITING. NO SIGNS OF DISTRESS NOTED. SAFETY MEASURES IN PLACE. BED IN LOW POSITION AND CALL LIGHT WITHIN REACH. TELE MONITOR ATTACHED. FALL RISK PROTOCOL IN PLACE. AWAITING FOR [facility] FOR TRANSFER. INSTRUCTED PATIENT TO USE THE CALL LIGHT FOR ANY ASSISTANCE AND PATIENT WAS AWARE.
[2019-06-15 13:44] LABS: FERRITIN 385 ng/mL (15 - 150)
[2019-06-15 13:45] LABS: TRANSFERRIN 72 mg/dL (200 - 370)
--- NOTE | 2019-06-15 14:25 | NUR ---
EXPLAINED TO DR BERGER THAT DISCHARGE SUMMARY HAS BEEN FAXED TO [facility] BUT THEIR FAX MACHINE IS NOT RESPONDING. INFORMED DR BERGER THAT [employer] HAS COPIED PATIENT'S CHART AND WILL SEND TO [facility] WITH TRANSFER PERSONNEL. DR BERGER WAS AWARE AND SAID "NO NEED TO FAX SUMMERY LONG CHART PROVIDED TO FACILITY."
--- NOTE | 2019-06-15 14:37 | NUR ---
DISCHARGE INSTRUCTION PROVIDED TO PATIENT AT BEDSIDE. EDUCATED PATIENT ON FOLLOW UP WITH MD, SEEK MEDICAL HELP IN CASE OF MEDICAL EMERGENCY, DISEASE MANAGEMENT, MEDICATION REGIMEN, SIDE EFFECTS, AND DIET. REINFORCEMENT NEEDED DUE TO PATIENT'S MENTAL STATUS. KEEP IV SITE WITH PATIENT DUE TO IV ANTIBIOTIC TREATMENT IS NEEDED AT [facility]. REMOVED ALL ARM BANDS. REMOVED TELE MONITOR AND RETURNED TO TELE VALVE MECHANIC. FLU VACCINE IS UP TO DATE; 05/2019. PATIENT REFUSED PNA VACCINE AND REFUSAL EDUCATION PROVIDED TO PATIENT. PATIENT CHANGED INTO [facility] GOWN. PRINTED DISCHARGE DOCUMENT PROVIDED TO PATIENT AND MONITOR COPIED CHART PROVIDED TO [facility]. PATIENT IS GOING TO TRANSFER AT THIS TIME ACCOMPANY WITH [facility]. PATIENT IS IN STABLE CONDITION.
== END 2019-06-15 14:35 | DRG 871 ==
LOC: MED 11:42 → MTU 16:07 → UNDOADMIN 16:07 → MIC 06-12 06:36 → MTU 06-12 20:30
PROVIDERS: ADMIT General Practice; ATTEND General Practice
DX: A41.9 Sepsis, unspecified organism (principal); N17.0 Acute kidney failure with tubular necrosis; E43 Unspecified severe protein-calorie malnutrition; K83.1 Obstruction of bile duct; N39.0 Urinary tract infection, site not specified; K55.9 Vascular disorder of intestine, unspecified; Z16.12 Extended spectrum beta lactamase (ESBL) resistance; F72 Severe intellectual disabilities; N13.30 Unspecified hydronephrosis; K92.2 Gastrointestinal hemorrhage, unspecified; D62 Acute posthemorrhagic anemia; G90.8 Other disorders of autonomic nervous system; Z68.31 Body mass index [BMI] 31.0-31.9, adult; B96.20 Unspecified Escherichia coli [E. coli] as the cause of diseases classified elsewhere; E78.5 Hyperlipidemia, unspecified; I10 Essential (primary) hypertension; K21.9 Gastro-esophageal reflux disease without esophagitis; M81.0 Age-related osteoporosis without current pathological fracture; Z96.651 Presence of right artificial knee joint; F32.9 Major depressive disorder, single episode, unspecified; E87.6 Hypokalemia; E83.42 Hypomagnesemia; E11.40 Type 2 diabetes mellitus with diabetic neuropathy, unspecified; K56.41 Fecal impaction; Y92.129 Unspecified place in nursing home as the place of occurrence of the external cause; W18.30XA Fall on same level, unspecified, initial encounter; Y93.89 Activity, other specified; Y99.8 Other external cause status; Z99.3 Dependence on wheelchair; Z88.8 Allergy status to other drugs, medicaments and biological substances; Z79.82 Long term (current) use of aspirin; Z79.899 Other long term (current) drug therapy
CPT/HCPCS: 36415; 70450; 71045; 76705; 80048; 80053; 80305; 81001; 82140; 82150; 82272; 82607; 82728; 82746; 83540; 83690; 83735; 83880; 84100; 84436; 84439; 84443; 84479; 84484; 85025; 85045; 85048; 85610; 85730; 87040; 87045; 87070; 87081; 87086; 87177; 87186; 93005; 93880; 96365; 97530; 99285; C9113; J0696; J2185; J2916; J3475; J3490; J7030; J7060; Q0092